=== PATIENT | male | born 1945 | race Caucasian/White ===

== ENCOUNTER 2020-10-16 06:53 | Day surgery (SDC) | payer MEDICARE, OTHER, MEDICAID, SELFPAY ==
[2020-10-10 13:58] VITALS: BMI 30.9
--- NOTE | 2020-10-13 11:12 | HO.ANESPROP2 ---
Documented by User: Pura Ortiz 10/13/20 11:12 HPI - Anesthesia Eval Consult details Narrative: 75yo M for Cataract Extraction IOL Insertion,right No prev cataract PCP cleared [facility], [facility] Past Medical History Medical History Asthma Elevated cholesterol [place] (hard of hearing) HTN (hypertension) Surgical History Surgical History H/O colonoscopy Social History Social History Alcohol intake: never Smoking Status: Former smoker Tobacco Type: Cigarette Smoking Quit Date: unknown-pt.not sure Use of substances other than those prescribed or required for medical reasons: No Advance Directives Information Provided: No Recently lost weight without trying: No Meds Allergies Allergy/AdvReac Type Severity Reaction Status Date / Time No Known Allergies Allergy Verified 10/16/20 07:39 [No Known Allergies*] Home Medications Medication Instructions Recorded Confirmed Type aspirin 81 mg PO DAILY 10/10/20 10/10/20 History fluticasone propionate [Flonase] 1 spray INTRANASAL DAILY 10/10/20 10/10/20 History hydrochlorothiazide 25 mg PO DAILY 10/10/20 10/10/20 History lisinopril 10 mg PO DAILY 10/10/20 10/10/20 History rosuvastatin 5 mg PO DAILY 10/10/20 10/10/20 History Exam Exam Date and Time: October 13, 2020 1112 Height,Weight and Vital Signs: Height 5 ft 5 in Weight 84.368 kg Assessment and Plan Assessment Anesthesia Assessment: Chart Reviewed Documented by User: Jamaica Murcia 10/16/20 07:55 [facility] Past Medical History Medical History Asthma Elevated cholesterol [place] (hard of hearing) HTN (hypertension) Surgical History Surgical History H/O colonoscopy Social History Social History Alcohol intake: never Smoking Status: Former smoker Tobacco Type: Cigarette Smoking Quit Date: unknown-pt.not sure Use of substances other than those prescribed or required for medical reasons: No Advance Directives Information Provided: No Recently lost weight without trying: No Meds Allergies Allergy/AdvReac Type Severity Reaction Status Date / Time No Known Allergies Allergy Verified 10/16/20 07:39 [No Known Allergies*] Home Medications Medication Instructions Recorded Confirmed Type aspirin 81 mg PO DAILY 10/10/20 10/10/20 History fluticasone propionate [Flonase] 1 spray INTRANASAL DAILY 10/10/20 10/10/20 History hydrochlorothiazide 25 mg PO DAILY 10/10/20 10/10/20 History lisinopril 10 mg PO DAILY 10/10/20 10/10/20 History rosuvastatin 5 mg PO DAILY 10/10/20 10/10/20 History Exam Airway Mallampati Class: II TM Dist: >3cm Neck ROM: Full Loose/Missing/Broken Teeth: No Heart: RRR Lungs: CTA Assessment and Plan Assessment Anesthesia Assessment: Anesthesia Plan Discussed and Chart Reviewed Final Anesthetic Review NPO: Yes ASA Class: II Final Preanesthetic Review: Meds/Allgs Chart Reviewed, Consent Obtained/Reviewed and Anes Risks/Benef Reviewed Patient Risk: Low Procedure Risk: Low Anesthetic Plan Anesthetic Plan: MAC: Disposition: Standard PACU
--- NOTE | 2020-10-13 12:36 | MHC.SHP ---
Pre-Procedural Eval Section A The patient is an INPATIENT: No The History & Physical has been completed within 30 days and I have reviewed it.: Yes Section B Chief Complaint: cataract right eye Allergies: Allergies Allergy/AdvReac Type Severity Reaction Status Date / Time No Known Allergies Allergy Verified 10/10/20 14:03 [No Known Allergies*] Plan Diagnosis/Plan: Unchanged I have reviewed the history and physical and performed a pertinent physical examination on my patient. No changes have occurred unless specified.
[2020-10-16 07:40] VITALS: BP 131/78; PULSE 66; RESP 16; TEMP 36.3; O2SAT 96
[2020-10-16] MEDS: Tetracaine HCl/PF 0.5% Oph Sol 4 ML DROPS 1 DROP EYE-RIGHT (08:00)
[2020-10-16] MEDS: Tropicamide 1 % Ophth Sol 3 ML BTL 1 DROP EYE-RIGHT ×3 (08:01→08:12)
[2020-10-16] MEDS: Phenylephrine HCL 2.5% Oph SoL 2 ML BOTTLE 1 DROP EYE-RIGHT ×3 (08:03→08:15)
[2020-10-16] MEDS: Lactated Ringers 500 ML 50 ML IV (08:05)
--- NOTE | 2020-10-16 09:02 | HO.PNOPHT ---
Ophthalmology Procedure Procedure Date of Service: 10/16/20 Ophthalmology Viscoelastic: Healaida Piedrat Dual Pack Pro Ophthalmology Lenses: TECMALOU [id number] (25) Procedure Notes: PREOPERATIVE DIAGNOSIS: Decreased visual acuity right eye secondary to cataract POSTOPERATIVE DIAGNOSIS: Same PROCEDURE: Right cataract extraction with intraocular lens insertion SURGEON: Ethan Gustafson M.D. ANESTHESIA: Topical/MAC ESTIMATED BLOOD LOSS: None COMPLICATIONS: None After obtaining informed consent, the patient was brought to the operating room suite and placed in the supine position. After adequate sedation per anesthesia, topical drops of Tetracaine were given to the right eye. The eye was then prepped and draped in the usual sterile fashion. The operating room microscope was then positioned over the operative eye and a lid speculum placed. A paracentesis was created. Viscoelastic was then instilled into the anterior chamber. A three plane incision was then created temporally, utilizing a 2.85 mm keratome. Capsulotomy forceps were then utilized to create a circular tear capsulotomy. Hydrodissection and hydrodelineation were carried out until adequate mobilization of the nucleus occurred. Phacoemulsification was then utilized to remove the dense central nucleus followed by removal of the cortical material utilizing the automated aspiration irrigation unit. Viscoelastic was instilled into the posterior capsular bag followed by placement of a posterior chamber intraocular lens without difficulty. The residual Viscoelastic was then removed utilizing the automated IA machine. The wound was checked and found to be watertight. The patient tolerated the procedure well and the lid speculum was removed. Intracameral injection of Vigamox 0.1 mL followed by a subtenon injection of Kenalog-40 0.2 mL were administered. The patient will be seen in the a.m.
[2020-10-16 09:03] VITALS: BP 142/83; PULSE 57; RESP 16; TEMP 36.1; O2SAT 95
== END 2020-10-16 09:32 | disposition home or self-care (01) ==
PROVIDERS: PCP Family Medicine; Visit Provider Ophthalmology
PROC: (CPT 66985; principal; 2020-10-16 09:00)
DX: H25.11 Age-related nuclear cataract, right eye (principal); H52.4 Presbyopia; I10 Essential (primary) hypertension; J30.9 Allergic rhinitis, unspecified; Z79.82 Long term (current) use of aspirin; Z79.899 Other long term (current) drug therapy; Z87.891 Personal history of nicotine dependence
CPT/HCPCS: 66984; J2250; J3010; J3300; V2632

== ENCOUNTER 2020-10-30 07:50 | Day surgery (SDC) | payer MEDICARE, MEDICAID, OTHER, SELFPAY ==
[2020-10-10 14:07] VITALS: BMI 30.9
--- NOTE | 2020-10-26 10:08 | MHC.SHP ---
Pre-Procedural Eval Section A The patient is an INPATIENT: No The History & Physical has been completed within 30 days and I have reviewed it.: Yes Section B Chief Complaint: cataract left eye Allergies: Allergies Allergy/AdvReac Type Severity Reaction Status Date / Time No Known Allergies Allergy Verified 10/16/20 07:39 [No Known Allergies*] Plan Diagnosis/Plan: Unchanged I have reviewed the history and physical and performed a pertinent physical examination on my patient. No changes have occurred unless specified.
--- NOTE | 2020-10-27 09:29 | P.CONAN_ITS ---
Documented by User: Pura Ortiz 10/27/20 09:31 HPI - Anesthesia Eval Consult details Narrative: 75yo M for Cataract Extraction IOL Insertion PCP cleared 1st eye 10/16/20 with MAC: Fent 50, Midaz 1 [facility] Past Medical History Medical History Asthma Elevated cholesterol [place] (hard of hearing) HTN (hypertension) Surgical History Surgical History H/O colonoscopy Social History Social History Alcohol intake: never Smoking Status: Former smoker Tobacco Type: Cigarette Smoking Quit Date: unknown-pt.not sure Use of substances other than those prescribed or required for medical reasons: No Advance Directives: No Advance Directives Information Provided: No Advance Directives on File: No Meds Allergies Allergy/AdvReac Type Severity Reaction Status Date / Time No Known Allergies Allergy Verified 10/16/20 07:39 [No Known Allergies*] Home Medications Medication Instructions Recorded Confirmed Type aspirin 81 mg PO DAILY 10/10/20 10/10/20 History fluticasone propionate [Flonase] 1 spray INTRANASAL DAILY 10/10/20 10/10/20 History hydrochlorothiazide 25 mg PO DAILY 10/10/20 10/10/20 History lisinopril 10 mg PO DAILY 10/10/20 10/10/20 History rosuvastatin 5 mg PO DAILY 10/10/20 10/10/20 History Exam Exam Date and Time: October 27, 2020 0929 Height,Weight and Vital Signs: Height 5 ft 5 in Weight 84.368 kg Assessment and Plan Assessment Anesthesia Assessment: Chart Reviewed Documented by User: Jamaica Murcia 10/30/20 08:40 [facility] Past Medical History Medical History Asthma Elevated cholesterol [place] (hard of hearing) HTN (hypertension) Surgical History Surgical History H/O colonoscopy Social History Social History Alcohol intake: never Smoking Status: Former smoker Tobacco Type: Cigarette Smoking Quit Date: unknown-pt.not sure Use of substances other than those prescribed or required for medical reasons: No Advance Directives: No Advance Directives Information Provided: No Advance Directives on File: No Meds Allergies Allergy/AdvReac Type Severity Reaction Status Date / Time No Known Allergies Allergy Verified 10/16/20 07:39 [No Known Allergies*] Home Medications Medication Instructions Recorded Confirmed Type aspirin 81 mg PO DAILY 10/10/20 10/10/20 History fluticasone propionate [Flonase] 1 spray INTRANASAL DAILY 10/10/20 10/10/20 History hydrochlorothiazide 25 mg PO DAILY 10/10/20 10/10/20 History lisinopril 10 mg PO DAILY 10/10/20 10/10/20 History rosuvastatin 5 mg PO DAILY 10/10/20 10/10/20 History Exam Airway Mallampati Class: III TM Dist: >3cm Neck ROM: Full Loose/Missing/Broken Teeth: Yes, Upper and Lower Heart: RRR Lungs: CTA Assessment and Plan Assessment Anesthesia Assessment: Anesthesia Plan Discussed and Chart Reviewed Final Anesthetic Review NPO: Yes ASA Class: II Final Preanesthetic Review: No Changes in Pt Med Stat, Meds/Allgs Chart Reviewed, Consent Obtained/Reviewed and Anes Risks/Benef Reviewed Patient Risk: Low Procedure Risk: Low Anesthetic Plan Anesthetic Plan: MAC:
[2020-10-30 08:52] VITALS: BP 147/81; PULSE 61; RESP 18; TEMP 36.3; O2SAT 96
[2020-10-30] MEDS: Tetracaine HCl/PF 0.5% Oph Sol 4 ML DROPS 1 DROP EYE-LEFT (09:04)
[2020-10-30] MEDS: Lactated Ringers 500 ML 50 ML IV (09:04)
[2020-10-30] MEDS: Phenylephrine HCL 2.5% Oph SoL 2 ML BOTTLE 1 DROP EYE-LEFT ×3 (09:08→09:16)
[2020-10-30] MEDS: Tropicamide 1 % Ophth Sol 3 ML BTL 1 DROP EYE-LEFT ×3 (09:10→09:16)
--- NOTE | 2020-10-30 09:38 | HO.PNOPHT ---
Ophthalmology Procedure Procedure Date of Service: 10/30/20 Ophthalmology Viscoelastic: Healon Duet Dual Pack Pro Ophthalmology Lenses: TECMALOU [id number] (25) Procedure Notes: PREOPERATIVE DIAGNOSIS: Decreased visual acuity left eye secondary to cataract POSTOPERATIVE DIAGNOSIS: Same PROCEDURE: Left cataract extraction with intraocular lens insertion SURGEON: Ethan Gustafson M.D. ANESTHESIA: Topical/MAC ESTIMATED BLOOD LOSS: None COMPLICATIONS: None After obtaining informed consent, the patient was brought to the operation room suite and placed in the supine position. After adequate sedation per anesthesia, topical drops of Tetracaine were given to the left eye. The eye was then prepped and draped in the usual sterile fashion. The operating room microscope was then positioned over the operative eye and a lid speculum placed. A paracentesis was created. Viscoelastic was then instilled into the anterior chamber. A three plane incision was then created temporally, utilizing a 2.85 mm keratome. Capsulotomy forceps were then utilized to create a circular tear capsulotomy. Hydrodissection and hydrodelineation were carried out until adequate mobilization of the nucleus occurred. Phacoemulsification was then utilized to remove the dense central nucleus followed by removal of the cortical material utilizing the automated aspiration irrigation unit. Viscoat elastic was instilled into the posterior capsular bag followed by placement of a posterior chamber intraocular lens without difficulty. The residual Viscoat elastic was then removed utilizing the automated IA machine. The wound was check and found to be watertight. The patient tolerated the procedure well and the lid speculum was removed. Intracameral injection of Vigamox 0.1 mL followed by a subtenon injection of Kenalog-40 0.2 mL were administered. The patient will be seen in the a.m.
[2020-10-30 09:58] VITALS: BP 156/80; PULSE 58; RESP 18; TEMP 36.4; O2SAT 94
--- NOTE | 2020-10-30 10:00 | HO.POSTANES ---
Post Anesthesia Evaluation Post Anesthesia Evaluation Vital Signs: Vital Signs Temp Pulse Resp BP Pulse Ox 10/30/20 08:52 97.3 F 61 18 147/81 H 96 Anesthesia: Monitored Mental Status: Awake Pain Control: Satisfactory Nausea/Vomiting: None Hydration: Adequate Anesthesia-Related Issues: No Anes. Related Issues
== END 2020-10-30 10:15 | disposition home or self-care (01) ==
PROVIDERS: PCP Family Medicine; Visit Provider Ophthalmology
PROC: (CPT 66985; principal; 2020-10-30 10:20)
DX: H25.12 Age-related nuclear cataract, left eye (principal); H54.7 Unspecified visual loss; H91.90 Unspecified hearing loss, unspecified ear; I10 Essential (primary) hypertension; J45.909 Unspecified asthma, uncomplicated; Z79.51 Long term (current) use of inhaled steroids; Z79.82 Long term (current) use of aspirin; Z79.899 Other long term (current) drug therapy; Z87.891 Personal history of nicotine dependence
CPT/HCPCS: 66984; J2250; J3010; J3300; V2632

== ENCOUNTER 2020-10-31 10:45 | Outpatient (REF) | payer SELFPAY | END 2020-10-31 10:46 | disposition home or self-care (01) | LOC: HO.HAP 10:45 | PROVIDERS: Visit Provider Family Medicine | DX: Z46.1 Encounter for fitting and adjustment of hearing aid (principal) | CPT/HCPCS: V5267 ==

== ENCOUNTER 2021-01-23 11:32 | Outpatient (REF) | payer SELFPAY | END 2021-01-23 11:33 | disposition home or self-care (01) | LOC: HO.HAP 11:32 | PROVIDERS: Visit Provider Family Medicine | DX: Z46.1 Encounter for fitting and adjustment of hearing aid (principal) | CPT/HCPCS: V5266 ==

== ENCOUNTER 2021-03-09 07:47 | Outpatient (REF) | payer MEDICARE, OTHER, SELFPAY | END 2021-03-09 07:48 | disposition home or self-care (01) | LOC: HO.HOSX 07:47 | PROVIDERS: Visit Provider Orthopaedic Surgery | DX: M25.362 Other instability, left knee (principal) | CPT/HCPCS: 99202 ==

== ENCOUNTER 2021-07-05 09:14 | Outpatient (REF) | payer SELFPAY | END 2021-07-05 09:15 | disposition home or self-care (01) | LOC: HO.HAP 09:14 | PROVIDERS: Visit Provider Family Medicine | DX: Z46.1 Encounter for fitting and adjustment of hearing aid (principal); H90.3 Sensorineural hearing loss, bilateral | CPT/HCPCS: V5266 ==

== ENCOUNTER 2022-02-13 14:53 | Outpatient (REF) | payer SELFPAY | END 2022-02-13 14:54 | disposition home or self-care (01) | LOC: HO.HAP 14:53 | PROVIDERS: PCP Family Medicine; Visit Provider Family Medicine | DX: Z46.1 Encounter for fitting and adjustment of hearing aid (principal); H90.3 Sensorineural hearing loss, bilateral | CPT/HCPCS: V5266 ==

== ENCOUNTER 2022-02-18 12:00 | Outpatient (REF) | payer MEDICARE, OTHER, SELFPAY ==
--- NOTE | 2022-02-18 16:18 | MHC.AU.AHA ---
Adult Audiological Evaluation Date of Visit: 02/18/22 Jewelry Maker Used: Afghan- In Person Reason for Appointment: Audiological re-evaluation due to concern for decreased hearing. Mr. Goodman has a known bilateral, sensorineural hearing loss and uses hearing aids binaurally. He notes that he hasn't been hearing as well with the hearing aids, especially from the left aid. The left earmold is loose and no longer fits well. Previous Hearing Test Results: [facility] 07/13/2019- Moderately severe to severe SNHL in the left ear. Moderately-severe to profound SNHL in the right ear. Negative middle-ear pressure in the right ear. Medical History: Medical History: High Blood Pressure Medical History: Per PCP report: Anxiety, Herpes, Hypecholesterolemia, Hypertension, Varicose Veins, Allergic rhinitis, Tremor, Dizziness, Catarqqact of both eyes Allergies: Lisinopril Medication List: Tylenol, Valacyclovir, loratadine, Crestor, Vitamin D3, aspirin, Guaifenesin AC, Debrox, amlodipine besylate, Hydrochlorothiazide Hearing Instrument History- Right Ear: Crushing Machine Operator: [employer] Model: Zynga B50-SP Serial Number: [id number] Battery Size: 13 Repair Warranty: 11/27/2022 Loss and Damage Warranty: 11/27/2022 Dispensed By: [facility] Date of Fittin09/10/2019 Hearing Instrument History- Left Ear: Crushing Machine Operator: [employer] Model: Zynga V50-SP Serial Number: [id number] Battery Size: 13 Warranty: 04/28/2019 Loss and Damage Warranty: USED Dispensed By: [facility] Date of Fittin02/15/2016 Otoscopy: Right Ear: Unremarkable Left Ear: Unremarkable Tympanometry: Tympanometry performed due to: History of middle ear dysfunction Right Ear: Negative Middle Ear Pressure (Type C) Left Ear: Normal Middle Ear System (Type A) Hearing Evaluation: Transducer(s) Used: Insert Earphones, Bone Conduction Method: Conventional Audiometry Stimuli Used: Pure Tones Right Ear: Description of Hearing: Severe sensorineural hearing loss from 250-1000 Hz, rising to moderately-severe sensorineural hearing loss at 2000 Hz, then sloping to a severe to profound sensorineural hearing loss from 9872-0717 Hz. Left Ear: Description of Hearing: Severe sensorineural hearing loss from 250-8000 Hz. Speech Recognition Threshold (SRT): Method Used: Recorded Lists Stimuli Used: Afghan Trisyllable Words Right Ear: 95 dBHL Left Ear: 95 dBHL Word Discrimination: Method: Recorded Lists Word Lists Used: Lista Bisil?bica (Afghan) Right Ear: 0/10 at 100 dBHL Left Ear: 0/10 at 100 dBHL Comparison: Compared to most recent evaluation: Hearing in the right ear is stable. Hearing has decreased by 20-25 dBHL from 250-500 Hz in the left ear. Recommendations: Audiological re-evaluation in one year. Hearing aid maintenance performed today. Earmold impressions taken of the left ear and a new earmold was ordered. Hearing aids are in good working condition. Diagnosis: Primary Diagnosis: H90.3 Bilateral Sensorineural Hearing Loss Services Performed: Comprehensive Audiological Evaluation (CPT 10406) Tympanometry (CPT 40155) Signature: Provider: Kaci Rowley, YUDITH-A
== END 2022-02-18 12:01 | disposition home or self-care (01) ==
LOC: HO.SH 12:00
PROVIDERS: Visit Provider Family Medicine
DX: Z01.118 Encounter for examination of ears and hearing with other abnormal findings (principal); H90.3 Sensorineural hearing loss, bilateral
CPT/HCPCS: 92557; 92567

== ENCOUNTER 2022-03-28 12:38 | Outpatient (REF) | payer SELFPAY | END 2022-03-28 12:39 | disposition home or self-care (01) | LOC: HO.HAP 12:38 | PROVIDERS: Visit Provider Family Medicine | DX: Z46.1 Encounter for fitting and adjustment of hearing aid (principal); H90.3 Sensorineural hearing loss, bilateral | CPT/HCPCS: V5264; V5266 ==

== ENCOUNTER → 2022-04-25 10:44 | Outpatient (BNVA) | payer MEDICARE, OTHER, SELFPAY | PROVIDERS: PCP Family Medicine; Referring Provider Family Medicine; Visit Provider Nurse Practitioner | DX: Z01.818 Encounter for other preprocedural examination (principal); D12.6 Benign neoplasm of colon, unspecified | CPT/HCPCS: 99202 ==

== ENCOUNTER 2023-05-19 10:22 | Outpatient (REF) | payer MEDICARE, OTHER, SELFPAY ==
[2023-05-19 12:02] LABS: MANUAL DIFF FLAG NO
[2023-05-19 12:17] LABS: Basophils Percent Auto 0.6 % (0-2); Eosinophils Absolute Auto 0.1 X10*3/uL (0.0-0.4); Eosinophils Percent Auto 1.7 % (0-4); Hematocrit 42.8 % (42.0-52.0); Hemoglobin 14.5 g/dl (14.0-18.0); Imm Gran Abs Auto 0.03 X10*3/uL (0.00-0.03); Imm Gran Pct Auto 0.4 % (0.0-0.4); Lymphocytes Absolute Auto 1.6 X10*3/uL (1.2-4.9); Lymphocytes Percent Auto 22.3 % (20-40); Mean Corpuscular HGB Conc 33.9 g/dl (31.0-36.0); Mean Corpuscular Hemoglobin 31.6 pg (27.0-33.0); Mean Corpuscular Volume 93.2 fL (80.0-98.0); Monocytes Absolute Auto 0.5 X10*3/uL (0.1-1.2); Monocytes Percent Auto 6.6 % (2-11); Neutrophils Absolute Auto 4.7 x10*3/uL (2.0-8.3); Neutrophils Percent Auto 68.4 % (45-73); Platelet Count 270 X10*3/uL (160-400); Red Blood Count 4.59 X10*6/uL (4.60-5.80); Red Cell Distribution Width 12.8 % (11.0-16.0); White Blood Count 6.9 X10*3/uL (4.8-10.8)
[2023-05-19 13:17] LABS: Alanine Aminotransferase 25 U/L (0-40); Albumin Level 4.1 g/dL (3.5-5.0); Alkaline Phosphatase 63 U/L (39-117); Anion Gap 13 (12-20); Aspartate Amino Transferase 31 U/L (5-37); Bilirubin Direct 0.3 mg/dL (0.0-0.5); Bilirubin Total 1.1 mg/dL (0.0-1.0); Blood Urea Nitrogen 13 mg/dL (9-16); Calcium 9.3 mg/dL (8.4-10.2); Carbon Dioxide 29 mmol/L (22-29); Chloride 104 mmol/L (96-108); Cholesterol 273 mg/dL; Estimated Glomerular Filt Rate > 60; Glucose Random 101 mg/dL (60-115); HDL Cholesterol 43 mg/dL; LDL Cholesterol Calculated 196 mg/dl; Potassium 2.9 mmol/L (3.3-5.1); Sodium 143 mmol/L (135-145); TSH reflex Free T4 2.26 uIU/mL (0.32-4.0); Total Protein 6.9 g/dL (6.5-8.0); Triglycerides 171 mg/dL
[2023-05-20 05:08] LABS: HIV AB/AG Nonreactive (Nonreactive); HIV Num 1 0.05 S/CO (0.00-0.99)
[2023-05-20 05:20] LABS: ~HepC Num1 0.05 S/CO (0.00-0.79); ~Hepatitis C Antibody Nonreactive (Nonreactive)
== END 2023-05-19 10:23 | disposition home or self-care (01) ==
LOC: HO.HHCL 10:22
PROVIDERS: Visit Provider Family Medicine
DX: Z11.4 Encounter for screening for human immunodeficiency virus [HIV] (principal); Z11.59 Encounter for screening for other viral diseases; I10 Essential (primary) hypertension; E78.00 Pure hypercholesterolemia, unspecified; E55.9 Vitamin D deficiency, unspecified; J39.2 Other diseases of pharynx
CPT/HCPCS: 36415; 80048; 80061; 80076; 82306; 84443; 85025; 86803; 87389

== ENCOUNTER 2023-12-11 13:36 | Outpatient (REF) | payer SELFPAY | END 2023-12-11 13:37 | disposition home or self-care (01) | LOC: HO.HAP 13:36 | PROVIDERS: Visit Provider Family Medicine | DX: Z46.1 Encounter for fitting and adjustment of hearing aid (principal); H90.3 Sensorineural hearing loss, bilateral | CPT/HCPCS: 92593; V5266 ==

== ENCOUNTER 2024-02-09 10:49 | Outpatient (REF) | payer SELFPAY ==
--- NOTE | 2024-02-10 12:52 | MHC.AU.HA3 ---
Hearing Instrument Follow-Up- Binaural Date of Visit: 02/09/24 Right Ear: Alek, Model, Color, Serial Number: Peyman Hollins [id number]-SP SN: [id number] Color: Silver [employer] Repair Warranty: 11/27/2022 [employer] Loss and Damage Warranty: 11/27/2022 [facility] Service Plan: Battery Size: 13 Auto Accessories Installer/Slim Tube: Earmold/Dome/CShell/SlimTip:Microsonic skeleton Type of Wax Guard: Dispensed By: [facility] Date of Fittin09/10/2019 Left Ear: Alek, Model, Color, Serial Number: Peyman Hollins [id number]-SP SN: [id number] Color: Silver [employer] Repair Warranty: 04/28/2019 [employer] Loss and Damage Warranty: USED [facility] Service Plan: Battery Size: 13 Auto Accessories Installer/Slim Tube: Earmold/Dome/CShell/SlimTip: Microsonic skeleton Type of Wax Guard: Dispensed By: [facility] Date of Fittin02/15/2016 Follow-Up Summary: Both aids dropped off for check, report of left battery not lasting. Cleaned checked aids, cleaned ear molds, replaced tubing. Listening check positive. Checked battery drain in test box, aids are equal in drain- 1.4 mA right, 1.3 mA L. Recommendations: Recommendations: Hearing instrument follow-up or maintenance as needed. Recommendations (Other): Left aid would have to go for repair if battery issue persists- over 5 years old would be $385. Diagnosis Code(s): Primary Diagnosis: H90.3 Bilateral Sensorineural Hearing Loss Signature: Provider: Biju Rodriguez, [facility]
== END 2024-02-09 10:50 | disposition home or self-care (01) ==
LOC: HO.HAP 10:49
PROVIDERS: Visit Provider Family Medicine
DX: Z13.89 Encounter for screening for other disorder (principal)

== ENCOUNTER 2024-02-10 14:24 | Outpatient (REF) | payer SELFPAY | END 2024-02-10 14:25 | disposition home or self-care (01) | LOC: HO.HAP 14:24 | PROVIDERS: Visit Provider Family Medicine | DX: Z46.1 Encounter for fitting and adjustment of hearing aid (principal); H90.3 Sensorineural hearing loss, bilateral | CPT/HCPCS: 92593 ==

== ENCOUNTER 2024-04-05 10:39 | Outpatient (REF) | payer MEDICARE, MEDICAID, SELFPAY ==
[2024-04-05 12:45] LABS: Alanine Aminotransferase 24 U/L (0-40); Albumin Level 4.2 g/dL (3.5-5.0); Alkaline Phosphatase 68 U/L (39-117); Anion Gap 14 (12-20); Aspartate Amino Transferase 25 U/L (5-37); Bilirubin Direct 0.2 mg/dL (0.0-0.5); Bilirubin Total 0.7 mg/dL (0.0-1.0); Blood Urea Nitrogen 13 mg/dL (9-16); Calcium 9.8 mg/dL (8.4-10.2); Carbon Dioxide 27 mmol/L (22-29); Chloride 105 mmol/L (96-108); Cholesterol 300 mg/dL (<200); Estimated Glomerular Filt Rate > 60; Glucose Random 123 mg/dL (60-115); HDL Cholesterol 44 mg/dL (>40); LDL Cholesterol Calculated 217 mg/dL (<100); Sodium 143 mmol/L (135-145); Total Protein 7.2 g/dL (6.5-8.0); Triglycerides 195 mg/dL (<150)
[2024-04-05 13:02] LABS: Creatinine Urine 112.13 mg/dL; Microalbum/Creatinine Ratio Ur 9.8 ug/mg cr (<30)
[2024-04-05 13:08] LABS: Potassium 2.9 mmol/L (3.3-5.1)
== END 2024-04-05 10:40 | disposition home or self-care (01) ==
LOC: HO.HHCL 10:39
PROVIDERS: Visit Provider Family Medicine
DX: I10 Essential (primary) hypertension (principal); E78.00 Pure hypercholesterolemia, unspecified
CPT/HCPCS: 36415; 80048; 80061; 80076; 82043; 82570

== ENCOUNTER 2024-07-06 14:50 | Outpatient (REF) | payer MEDICARE, MEDICAID, SELFPAY | END 2024-07-06 14:51 | disposition home or self-care (01) | LOC: HO.HAP 14:50 | PROVIDERS: Visit Provider Family Medicine | DX: Z13.89 Encounter for screening for other disorder (principal) ==

== ENCOUNTER 2024-07-07 11:30 | Outpatient (REF) | payer SELFPAY | END 2024-07-07 11:31 | disposition home or self-care (01) | LOC: HO.HAP 11:30 | PROVIDERS: Visit Provider Family Medicine | DX: Z46.1 Encounter for fitting and adjustment of hearing aid (principal) | CPT/HCPCS: 92593 ==

== ENCOUNTER 2024-07-28 10:53 | Outpatient (REF) | payer MEDICARE, OTHER, SELFPAY ==
[2024-07-28 13:44] LABS: Anion Gap 12 (12-20); Blood Urea Nitrogen 15 mg/dL (9-16); Calcium 9.7 mg/dL (8.4-10.2); Carbon Dioxide 29 mmol/L (22-29); Chloride 105 mmol/L (96-108); Estimated Glomerular Filt Rate > 60; Glucose Random 94 mg/dL (60-115); Magnesium 2.4 mg/dL (1.6-2.6); Potassium 3.1 mmol/L (3.3-5.1); Sodium 143 mmol/L (135-145)
== END 2024-07-28 10:54 | disposition home or self-care (01) ==
LOC: HO.HHCL 10:53
PROVIDERS: Visit Provider Family Medicine
DX: E87.6 Hypokalemia (principal)
CPT/HCPCS: 36415; 80048; 83735

== ENCOUNTER 2024-08-05 12:59 | Outpatient (REF) | payer SELFPAY | END 2024-08-05 13:00 | disposition home or self-care (01) | LOC: HO.HAP 12:59 | PROVIDERS: Visit Provider Family Medicine | DX: Z13.89 Encounter for screening for other disorder (principal) ==

== ENCOUNTER 2024-08-12 14:34 | Outpatient (REF) | payer SELFPAY | END 2024-08-12 14:35 | disposition home or self-care (01) | LOC: HO.HAP 14:34 | PROVIDERS: Visit Provider Family Medicine | DX: Z46.1 Encounter for fitting and adjustment of hearing aid (principal); H90.3 Sensorineural hearing loss, bilateral | CPT/HCPCS: 92592 ==

== ENCOUNTER 2025-01-03 11:28 | Outpatient (REF) | payer MEDICARE, MEDICAID, OTHER, SELFPAY ==
[2025-01-03 12:57] LABS: Alanine Aminotransferase 32 U/L (0-40); Albumin Level 4.1 g/dL (3.5-5.0); Alkaline Phosphatase 88 U/L (39-117); Anion Gap 11 (12-20); Aspartate Amino Transferase 30 U/L (5-37); Bilirubin Direct 0.3 mg/dL (0.0-0.5); Bilirubin Total 1.1 mg/dL (0.0-1.0); Blood Urea Nitrogen 13 mg/dL (9-16); Carbon Dioxide 29 mmol/L (22-29); Chloride 105 mmol/L (96-108); Cholesterol 185 mg/dL (<200); Estimated Glomerular Filt Rate > 60; Glucose Random 107 mg/dL (60-115); HDL Cholesterol 43 mg/dL (>40); LDL Cholesterol Calculated 115 mg/dL (<100); Potassium 3.9 mmol/L (3.3-5.1); Sodium 141 mmol/L (135-145); Total Protein 7.1 g/dL (6.5-8.0); Triglycerides 136 mg/dL (<150)
--- OUTSIDE RECORDS SUMMARY | 2025-01-03 13:08 | XMS_ITS | Encounter Summary ---
Author Organization [employer] [facility] Address [address] [place] [address] Care Team Providers Care Switchboard Troubleshooter Name Role Phone Michelle Carcamo MD Primary Care Provider [phone] Encounter Details Date Type Department Care Team (Latest Contact Info) Description 03/15/2021 Abstract [facility] CONVERSIONS Dental, Provider, DDS Social History Tobacco Use Types Packs/Day Years Used Date Smoking Tobacco: Never Assessed Sex and Gender Information Value Date Recorded Sex Assigned at Male 08/05/2022 10:20 AM EDT Legal Sex Male 10:20 AM EDT Gender Identity Male 08/05/2022 10:20 AM EDT Sexual Orientation Straight 08/05/2022 10 :20 AM EDT documented as of this encounter Plan of Treatment Upcoming Encounters Date Type Department Care Team ( st Contact Info) Description 02/17/2025 10:30 AM EDT Office Visit [facility] MEDICINE [address] [place] [address] Michelle Carcamo MD [address] [place] [address] documented as of this encounter Visit Diagnoses Not on filedocumented in this encounter Care Teams Switchboard Troubleshooter Relationship Specialty Start Date End Date Michelle Carcamo MD [address], [place] [phone] PCP - General Family Medicine 10/06/18 documented as of this encounter
--- OUTSIDE RECORDS SUMMARY | 2025-01-03 13:08 | XMS_ITS | Encounter Summary ---
Author Organization [employer] Address [address] [place] [address] Care Team Providers Care Gas Specialist Name Role Phone Michelle Carcamo MD Primary Care Provider [phone]- [phone] Encounter Details Date Type Department Care Team (Late st Contact Info) Description 07/28/2024 Orders Only [facility] MEDICINE [address] [place] [address] Michelle Carcamo MD [address] [place], [place] [phone] Hypokalemia Social History Tobacco Use Types Packs/Day Years Used Date Smoking Tobacco: Never Passive Smoke Exposure: Never Smokeless Tobacco: Never Alcohol Use Standard Drinks/Week Comments Never 0 (1 standard drink = 0.6 oz pur e alcohol) Alcohol Answer Date Recorded Frequency of Alcohol Consumption Not on file 07/28/2024 Average Number of Drinks Not on file 024 Frequency of Binge Drinking Not on file 07/07 Score 0 07/28/2024 Depression Answer Date Recorded Patient Health Questionnaire-9 Score 0 07/28/2024 Patient Health Questionnaire-9 Score 0 07/28/2024 Last PHQ-9: Questionnaire Data Not on file 1 Housing Stability Answer Date Recorded What is your housing situation today? I have rufus salomon 07/28/[address] you li ve. Do you have problems with any of the following? No or not working smoke detectors 07/28/2024 Food Insecurity Answer Date Recorded Within the past 12 months, y ou worried that your food would run out before you got money to buy more: Never True 07/28/2024 Within the past 12 months,th e food you bought just didn't last and you didn't have enough money to get more: Never True Transportation Answer Date Recorded In the past 12 months, has l ack of transportation kept you from medical appts, meetings, work or from getting things needed for daily living? No 07/28/2024 Utilities Answer Date Recorded In the past 12 months, has t he electric, gas, oil or water company threatened to shut off services in your home? I am not sure 07/28/2024 Depression Answer Date Recorded Patient Health Questionnaire-2 Score 0 07/28/2024 Internet Access Answer Date Recorded Internet Access Q1 Yes 07/28/2024 Internet Access Q2 Not on file 07/28/2024 Sex and Gender Information Value Date Recorded Sex Assigned at Male 08/05/2022 10:20 AM EDT Legal Sex Male 10:20 AM EDT Gender Identity Male 08/05/2022 10:20 AM EDT Sexual Orientation Straight 08/05/2022 10 :20 AM EDT documented as of this encounter Plan of Treatment Upcoming Encounters Date Type Department Care Team (Late st Contact Info) Description 02/17/2025 10:30 AM EDT Office Visit [facility] MEDICINE [address] [place] [address] Michelle Carcamo MD [address] [place] [address] documented as of this encounter Visit Diagnoses Diagnosis Hypokalemia Hypopotassemia documented in this encounter Additional Health Concerns Assessment Noted Time PHQ-9 Depression Total Score: 0 07/28/20 24 10:17 AM EDT documented as of this encounter Care Teams Gas Specialist Relationship Specialty Start Date End Date Michelle Carcamo MD [address] [place] [address] PCP - General Family Medicine 10/06/18 documented as of this encounter
--- OUTSIDE RECORDS SUMMARY | 2025-01-03 13:08 | XMS_ITS | Clinical Summary ---
Author Organization [employer] Address [address] [facility] 7t [place] [address] Care Team Providers Care Hose Stripper Name Role Phone Michelle Carcamo MD Primary Care Provider [phone]- [phone] Allergies Active Allergy Reactions Criticality Noted Date Comments Lisinopril 03/23/2019 Other reaction(s): Hives / Skin Rash Medications amLODIPine (Norvasc) 5 MG tabletIndications :Primary hypertension TAKE 1 TABLET BY MOUTH EVERY MORNING 90 tablet 3 4 Active valACYclovir (Valtrex) 500 MG tabletIndications :Herpes simplex TAKE 1 TABLET BY MOUTH TWICE A DAY FOR 3 DAYS 18 tablet 3 4 Active hydroCHLOROthiazi de (HYDRODiuril) 25 MG tabletIndications :Primary hypertension TAKE 1 TABLET BY MOUTH EVERY MORNING-spanis h, dose increased 08/30/24 90 tablet 3 4 Active potassium chloride CR (Klor-Con) 10 MEQ ER tabletIndications :Hypokalemia Take 1 tab po daily 90 tablet 3 4 Active atorvastatin (Lipitor) 20 MG tabletIndications :Hypercholesterol emia Take 1 tablet (20 mg) by mouth Once per day. 30 tablet 11 5 11/15/19 26 Active Active Problems Problem Noted Date Diagnosed Date Hypokalemia 07/28/2024 Overview (08/30/2024): Lab Results Component Value Date K 3.1 (L) 07/28/2024 K 2.9 (LL) 04/05/2024 K 2.9 (L) 05/19/2023 -will recheck on BMP and will also check magnesium in Mid-October - continue potassium 10 meq Assessment & Plan (08/30/2024 9:55 AM EST): Lab Results Component Value Date K 3.1 (L) 07/28/2024 K 2.9 (LL) 04/05/2024 K 2.9 (L) 05/19/2023 -will recheck on BMP and will also check magnesium in Mid-October - continue potassium 10 meq Assessment & Plan (07/28/2024 10:02 AM EDT): Lab Results Component Value Date K 2.9 (LL) 04/05/2024 K 2.9 (L) 05/19/2023 -will recheck on BMP and will also check magnesium 07/28/24 Mild cognitive impairment 07/28/2024 Hx of falling 07/28/2024 Bilateral cataracts 05/19/2023 Tubular adenoma 05/19/2023 Overview (08/20/2023): Tubular adenoma on colonoscopy with Dr. Abraham 05/2017. GI saw pt and per pt no further recommended based on age. Other specified health status 05/19/2023 Overview (08/30/2024): -next physical exam due after 08/30/2025 -eye care facilitated by [facility] -dental home is [facility] dental -health care proxy given and filed 07/28/24 Assessment & Plan (08/30/2024 9:57 AM EST): -next physical exam due after 08/30/2025 -eye care facilitated by [facility] -dental home is [facility] dental -health care proxy given and filed 07/28/24 Assessment & Plan (07/28/2024 9:53 AM EDT): -next physical exam due after 08/20/2024 -eye care facilitated by [facility] -dental home is [facility] dental -health care proxy given and filed 07/28/24 Assessment & Plan (08/20/2023 12:11 PM EST): -next physical exam due after 08/20/2024 -eye care facilitated by [facility] -dental home is [facility] dental Assessment & Plan (05/19/2023 9:44 AM EDT): -next physical exam due will see Pt back in 2 months. -eye care facilitated by -dental home is Vitamin D deficiency 05/19/2023 Hx of syphilis 05/19/2023 Overview (05/19/2023): Syphilis reactive with confirmatory 11/2018, RPR was non reactive. Assessment & Plan (05/19/2023 9:46 AM EDT): Syphilis reactive with confirmatory 11/2018, RPR was non reactive. 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 Pt is unaware of movemnt. No other evidence of dyskinesia. Not on any meds that should cause this. Continue to mornitor to monitor for evidence of parkinsons. Assessment & Plan (08/20/2023 12:11 PM EST): Quesion of pill rolling tremor on exam. Pt is unaware of movemnt. No other evidence of dyskinesia. Not on any meds that should cause this. Continue to mornitor to monitor for evidence of parkinsons. 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 Pt saw [facility] audiology 11/25/2019 Assessment & Plan (04/05/2024 8:37 AM EDT): Uses hearing aids Assessment & Plan (08/20/2023 12:11 PM EST): Uses hearing aids Assessment & Plan (05/19/2023 11:06 AM EDT): Uses hearing aids Anxiety 06/04/2012 Varicose veins of left lower extremity 2 Hypertension 04/02/2012 Overview (11/15/2024): -Blood pressure is not controlled. Pt does not want to change medications. It has taken a decade to get a regimin that he agrees to take daily. -Continue lifestyle modifications -Continue current medications -Continue hydrochlorothiazide increased to 25 mg daily 08/30/25 -Continue amlodipine 5 mg daily 08/30/24 -Continue potassium 10 meq 08/30/24 Assessment & Plan (11/15/2024 12:21 PM EST): -Blood pressure is not controlled. Pt does not want to change medications. It has taken a decade to get a regimin that he agrees to take daily. -Continue lifestyle modifications -Continue current medications -Continue hydrochlorothiazide increased to 25 mg daily 08/30/25 -Continue amlodipine 5 mg daily 08/30/24 -Continue potassium 10 meq 08/30/24 Assessment & Plan (08/30/2024 10:03 AM EST): -Blood pressure slightly above goal -Continue lifestyle modifications -Continue current medications - hydrochlorothiazide increased to 25 mg daily in the morning 08/30/25 - amlodipine 5 mg daily 08/30/24 Advised to take with foods to avoid nausea. - Continue potassium 10 meq 08/30/24 Assessment & Plan (07/28/2024 10:08 AM EDT): -Blood pressure slightly above goal -Continue lifestyle modifications -Continue current medications Assessment & Plan (04/05/2024 10:13 AM EDT): -Blood pressure is slightly above goal -Continue lifestyle modifications -Continue current medications Assessment & Plan (08/20/2023 12:10 PM EST): -Blood pressure is at goal -Continue lifestyle modifications -Continue current medications Assessment & Plan (05/19/2023 9:10 AM EDT): -Blood pressure is at goal -Continue lifestyle modifications -Continue current medications Hypercholesterolemia 04/02/2012 Overview (11/15/2024): Lab Results Component Value Date CHOL 296 (H) 10/18/2024 TRIG 288 (H) 10/18/2024 HDL 42 10/18/2024 LDLCHOLCAL 197 (H) 10/18/2024 -continue lifestyle modifications -pt self discontinued multiple meds, will try again atorvastatin 20mg at bedtime 11/15/24 - Ordered labs December 2024 Assessment & Plan (11/15/2024 12:20 PM EST): Lab Results Component Value Date CHOL 296 (H) 10/18/2024 TRIG 288 (H) 10/18/2024 HDL 42 10/18/2024 LDLCHOLCAL 197 (H) 10/18/2024 -continue lifestyle modifications -pt self discontinued multiple meds, will try again atorvastatin 20mg at bedtime 11/15/24 - Ordered labs December 2024 Assessment & Plan (08/30/2024 9:56 AM EST): Lab Results Component Value Date CHOL 300 (H) 04/05/2024 TRIG 195 (H) 04/05/2024 HDL 44 04/05/2024 LDLCHOLCAL 217 (H) 04/05/2024 -continue lifestyle modifications -Restart rosuvastatin 5mg at bedtime. He will not change medication and has a long history of nonadherent to all statins. - Ordered labs 08/30/24 To recheck in 6 weeks Assessment & Plan (07/28/2024 10:03 AM EDT): Lab Results Component Value Date CHOL 300 (H) 04/05/2024 TRIG 195 (H) 04/05/2024 HDL 44 04/05/2024 LDLCHOLCAL 217 (H) 04/05/2024 -continue lifestyle modifications -continue rosuvastatin 5mg at bedtime. He will not change medication and has a long history of nonadherent to all statins. Assessment & Plan (04/05/2024 8:38 AM EDT): Lab Results Component Value Date CHOLESTEROL 260 (H) 04/30/2021 LDLCHOL 184 (H) 04/30/2021 LDLCHOL 180 (H) 06/13/2020 TRIG 171 05/19/2023 HDLCHOL 42 04/30/2021 CHOLHDLRAT 6.2 (H) 04/30/2021 -continue lifestyle modifications -continue rosuvastatin 5mg at bedtime. He will not change medication and has a long history of nonadherent to all statins. Assessment & Plan (08/20/2023 12:11 PM EST): Lab Results Component Value Date CHOLESTEROL 260 (H) 04/30/2021 LDLCHOL 184 (H) 04/30/2021 LDLCHOL 180 (H) 06/13/2020 TRIG 171 05/19/2023 HDLCHOL 42 04/30/2021 CHOLHDLRAT 6.2 (H) 04/30/2021 -continue lifestyle modifications -continue rosuvastatin 5mg at bedtime. He will not change medication and has a long history of nonadherent to all statins. Assessment & Plan (05/19/2023 11:06 AM EDT): Lab Results Component Value Date CHOLESTEROL 260 (H) 04/30/2021 LDLCHOL 184 (H) 04/30/2021 LDLCHOL 180 (H) 06/13/2020 HDLCHOL 42 04/30/2021 CHOLHDLRAT 6.2 (H) 04/30/2021 -continue lifestyle modifications -continue rosuvastatin 5mg at bedtime. He will not change medication and has a long history of nonadherent to all statins. Resolved Problems Problem Noted Date Diagnosed Date Resolved Date Allergic rhinitis 04/02/2012 10/19/2024 Encounters Date Type Department Care Team Description 12/17/2024 Population Health Risk Score [facility] (C[facility]) Department [address] [address] Provider, Population Health Generic 11/18/2024 Telephone [facility] MEDICINE [address] [place] [phone] Ana Perkins MA Record Request (Serge is requesting notes from ENT.) 11/15/2024 10:30 AM EST Office Visit [address] [address] Michelle Carcamo MD Hypercholesterolemia (Primary Dx); Dietary counseling; Exercise counseling; Class 1 obesity due to excess calories with serious comorbidity and body mass index (BMI) of 30.0 to 30.9 in adult; Primary hypertension 11/15/[address] [address] Michelle Carcamo MD 11/15/2024 Travel 11/12/[address] [address] Ana Perkins MA chartprep 10/08/2024 Telephone [facility] PEDS [address] [place] [address] Leonela Garcia MA November Recall from Last 3 Months Immunizations Name Administration Dates Next Due Influenza High-dose Quadriva lent Preservative Free 08/20/2023,07/19/2022,07/19/2021,07/08 Influenza injectable quadriv alent IIV4 with preservative 10/02/2017 Influenza, High Dose Seasona l, Preservative Free 07/08/2024,06/29/2019,06/05/2018,07/01,06/12/2016 Influenza, IIV3, injectable 06/20/2014,0 06/23/2011,08/24/2010,07/20,07/10/2007 Influenza, Split (incl. benitez fied surface antigen) 06/25/2013,06/23/2012 Pneumococcal Conjugate PCV 13 10/28/2018 Pneumococcal Polysaccharide PPSV23 10/02/2017,,07/15/2003 RSV Bivalent 04/29/2024 TD (adult), 2 Lf tetanus tox oid, preservative free, adsorbed 05/19/2023,12/05/2003 Tdap 04/27/2012 Zoster, Recombinant 04/29/2024,07/01/2020 Zoster, live 10/21/2012 Social History Tobacco Use Types Packs/Day Years Used Date Smoking Tobacco: Never Passive Smoke Exposure: Never Smokeless Tobacco: Never Tobacco Cessation:Counseling Given: Not Answered Alcohol Use Standard Drinks/Week Comments Never 0 [...] is your housing situation today? I have rufusmitzi salomon 07/28/[address] you [...] Orientation Straight 08/05/2022 10 :20 AM EDT Last Filed Vital Signs Vital Sign Reading Time Taken Comments Blood Pressure 160/80 11/15/2024 10:37 AM EST Pulse 68 11/15/2024 10:37 AM EST Temperature 35.9 ??C (96.7 ??F) 11/15/2024 1 0:37 AM EST Respiratory Rate 20 11/15/2024 10:3 7 AM EST Oxygen Saturation 98% 11/15/2024 10: 37 AM EST Inhaled Oxygen Concentration - - Weight 91.1 kg (200 lb 12.8 oz) 025 10:37 AM EST Height 168.7 cm (5' 6.4 ) 08/30/2024 9:14 AM EST Body Mass Index 32.02 08/30/2024 9:14 AM EST Plan of Treatment Upcoming Encounters Date Type Department Care Team ([facility] st Contact Info) Description 02/17/2025 10:30 AM EDT Office Visit [facility] [address] [place], [place] [phone] Michelle Carcamo MD [address] [place], [place] [phone] Health Maintenance Due Date Last Done Comments Alcohol/Substance Use Screening 07/28/2025 07/28/2024 COVID-19 Vaccine ( season) 2025 12/05/2021, 12/14/2020, 11/16/2020 Postponed from 06/06/2024 (Patient Refused) Depression Screening 07/28/2025 07/28/2024, 07/28/20 24 SDOH Screening 07/28/2025 07/28/2024 Tobacco Screening 11/15/2025 11/15/2024 Lipid Panel 10/18/2029 01/03/2025, 10/06, 04/05/2024, Additional history exists DTaP/Tdap/Td Vaccines (3 - Td or Tdap) 05/19/2033 05/19/2023, 04/27/2012, 12/05/2003 Pneumococcal Vaccine: 50+ Years Completed 10/28/2018, 10/02/2017, 04/27/2012, Additional history exists RSV Patients and Patients Aged 60 years or older Completed 04/29/2024 Zoster Vaccines Completed 04/29/2024, 06/07, 10/21/2012 Influenza Vaccine Completed 07/08/2024, , 07/19/2022, Additional history exists HIB Vaccines Aged Out No longer eligi ble based on patient's age to complete this topic HPV Vaccines Aged Out No longer eligi ble based on patient's age to complete this topic Hepatitis A Vaccines Aged Out No long er eligible based on patient's age to complete this topic Hepatitis B Vaccines Aged Out No long er eligible based on patient's age to complete this topic IPV Vaccines Aged Out No longer eligi ble based on patient's age to complete this topic Meningococcal Vaccine Aged Out No edilberto corazon eligible based on patient's age to complete this topic RSV under 20 months Aged Out No longe r eligible based on patient's age to complete this topic Rotavirus Vaccines Aged Out No longer eligible based on patient's age to complete this topic Procedures Procedure Name Priority Date/Time Associated Diagnosis Comments LIPID PANEL, STANDARD Routine 01/03/2025 11:30 AM EDT Hypercholesterolemi a HEPATIC FUNCTION PANEL Routine 01/03/2025 11:30 AM EDT Hypercholesterolemi a BASIC METABOLIC PANEL Routine 01/03/2025 11:30 AM EDT Hypokalemia HEPATIC FUNCTION PANEL Routine 10/18/2024 1:56 PM EST Hypercholesterolemi a LIPID PANEL, STANDARD Routine 10/18/2024 1:56 PM EST Hypercholesterolemi a BASIC METABOLIC PANEL Routine 10/18/2024 1:56 PM EST Hypokalemia from Last 3 Months Results * (ABNORMAL) Hepatic Function Panel (01/03/2025 11:30 AM EDT) Only the most recent of2 resultswithin the time period is included. Bilirubin, Total 1.1(H) 0.0 - 1.0 mg/dL [facility] Bilirubin, Direct 0.3 0.0 - 0.5 mg/dL [facility] Aspartate Amino Transferase 30 5 - 37 U/L [facility] Alanine Aminotransferase 32 0 - 40 U/L [facility] Total Protein 7.1 6.5 - 8.0 g/dL [facility] Albumin Level 4.1 3.5 - 5.0 g/dL [facility] Alkaline Phosphatase 88 39 - 117 U/L [facility] Blood Venous blood specimen / Unknown 01/03/2025 11:30 AM EDT 01/03/2025 12:30 PM EDT us Michelle Carcamo MD LAB BLOOD ORDERABLES Final Result [facility] [address] [place] [phone] [phone] * (ABNORMAL) Lipid Panel, Standard (01/03/2025 11:30 AM EDT) Only the most recent of2 resultswithin the time period is included. Triglycerides 136 <150 mg/dL [facility] Comment:Desirable Triglyceri de: less than 150 mg/dLBorderline High Triglyceride 150-199 mg/dLHigh Triglyceride: 200-499 mg/dLVery High Triglyceride: greater than or equal to 5OO mg/dL Cholesterol 185 <200 mg/dL [facility] Comment:Desirable Cholestero l: less than 200 mg/dLBorderline High Cholesterol: 200-239 mg/dLHigh Cholesterol: greater than 239 mg/dL LDL Cholesterol Calculated 115(H) <100 mg/dL [facility] Comment:Desirable LDL: less than 100 mg/dLNear Optimal/Above Optimal LDL: 110- 129 mg/dLBorderline High LDL: 130-159 mg/dLHigh LDL: 160-189 mg/dLVery High LDL: greater than or equal to 190 mg/dL HDL Cholesterol 43 >40 mg/dL [facility] Comment:Desirable HDL: great er than 40 mg/dL Note: This HDL assay may give artificially low results in patients with liver disease. Blood Venous blood specimen / Unknown 01/03/2025 11:30 AM EDT 01/03/2025 12:30 PM EDT Michelle Carcamo MD LAB BLOOD ORDERABLES Final Result Performing Organization Address [facility]/ZIP Co de Phone Number [facility] [address] [place] [address] [phone] * (ABNORMAL) Basic Metabolic Panel (01/03/2025 11:30 AM EDT) Only the most recent of2 resultswithin the time period is included. Sodium 141 135 - 145 mmol/L [facility] Potassium 3.9 3.3 - 5.1 mmol/L [facility] Chloride 105 96 - 108 mmol/L [facility] Carbon Dioxide 29 22 - 29 mmol/L [facility] Anion Gap 11(L) 12 - 20 [facility] Urea Nitrogen (BUN) 13 9 - 16 mg/dL [facility] Creatinine, Serum 0.82 0.5 - 1.4 mg/dL [facility] Estimated Glomerular Filt Rate >60 [facility] Comment:Chronic Kidney Disea se: Estimated GFR < 60 mL/min/[id number] Kidney Disease: Estimated GFR < 15 mL/min/1.73m2 Glucose 107 60 - 115 mg/dL [facility] Calcium 9.0 8.4 - 10.2 mg/dL [facility] Blood Venous blood specimen / Unknown 01/03/2025 11:30 AM EDT 01/03/2025 12:30 PM EDT Michelle Carcamo MD LAB BLOOD ORDERABLES Final Result Performing Organization Address City/[facility]/ZIP Co de Phone Number [facility] [address] [place] [phone] from Last 3 Months Insurance MEDICARE [facility] STANDARD HS FULL Advance Directives Documents on File Type Date Recorded Patient Child Custody Evaluator Expl anation Advance Directives and Living Will 07/29/2024 12:34 PM Health Care Proxy Advance Directives and Living Will 04/05/2024 Health Care Proxy 04/05/24 Care Teams Hose Stripper Relationship Specialty Start Date End Date Paulding, MD Michelle [address] [place] [phone] PCP - General Family Medicine 10/06/18
--- OUTSIDE RECORDS SUMMARY | 2025-01-03 13:08 | XMS_ITS | Encounter Summary ---
Author Organization [employer] Address [address] [facility] [address]t [place] [address] Care Team Providers Care Egg Tester Name Role Phone Michelle Carcamo MD Primary Care Provider [phone]- [phone] Reason for Visit * Reason Comments Med Change Request Encounter Details Date Type Department Care Team ([facility] Contact Info) Description 08/19/2024 Refill [facility] [address] [place] [address] Michelle Carcamo MD [address] [place] [address] Hypokalemia Social History Tobacco Use Types Packs/Day [...] Description 02/17/2025 10:30 AM EDT Office Visit [facility] [address] [place] [phone] Michelle Carcamo MD [address] [place] [phone] documented as of this encounter Visit Diagnoses Diagnosis Hypokalemia Hypopotassemia documented in this encounter Additional Health Concerns Assessment Noted Time PHQ-9 Depression Total Score: 0 07/28/20 24 10:17 AM EDT documented as of this encounter Care Teams Egg Tester Relationship Specialty Start Date End Date Michelle Carcamo MD [address] [place] [phone] PCP - General Family Medicine 10/06/18 documented as of this encounter
--- OUTSIDE RECORDS SUMMARY | 2025-01-03 13:08 | XMS_ITS | Encounter Summary ---
Author Organization [employer] Address [address] [facility] 7t [place] [address] Care Team Providers Care Business Taxes Specialist Name Role Phone Carlos AlbertoMichelle chadwick MD Primary Care Provider [phone]- [phone] Reason for Visit * Reason Comments Med Refill Encounter Details Date Type Department Care Team ([facility] st Contact Info) Description 06/14/2024 Refill [facility] PEDS [address] [place], [place] [phone] Venita Sparrow, ANP [address] [place] [address] Primary hypertension Social History Tobacco Use Types Packs/Day Years Used Date Smoking Tobacco: Never Passive Smoke Exposure: Never Smokeless Tobacco: Never Alcohol Use Standard Drinks/Week Comments Never 0 (1 standard drink = 0.6 oz pur e alcohol) Depression Answer Date Recorded Patient Health Questionnaire-9 Score 0 05/19/2023 Housing Stability Answer Date Recorded What is your housing situation today? I have rufus salomon 07/23/[address] you li ve. Do you have problems with any of the following? None of the above 07/23/2023 Food Insecurity Answer Date Recorded Within the past 12 months, y ou worried that your food would run out before you got money to buy more: Never True 07/23/2023 Within the past 12 months,th e food you bought just didn't last and you didn't have enough money to get more: Never True Transportation Answer Date Recorded In the past 12 months, has l ack of transportation kept you from medical appts, meetings, work or from getting things needed for daily living? No 07/23/2023 Utilities Answer Date Recorded In the past 12 months, has t he electric, gas, oil or water company threatened to shut off services in your home? No 07/23/2023 Depression Answer Date Recorded Patient Health Questionnaire-2 Score 0 05/19/2023 Sex and Gender Information Value Date Recorded Sex Assigned at Male 08/05/2022 10:20 AM EDT Legal Sex Male 10:20 AM EDT Gender Identity Male 08/05/2022 10:20 AM EDT Sexual Orientation Straight 08/05/2022 10 :20 AM EDT documented as of this encounter Plan of Treatment Upcoming Encounters Date Type Department Care Team (Late st Contact Info) Description 02/17/2025 10:30 AM EDT Office Visit [facility] MED[facility] [address] [place] [address] Michelle Carcamo MD [address] [place] [address] documented as of this encounter Visit Diagnoses Diagnosis Primary hypertension Unspecified essential hypertension documented in this encounter Additional Health Concerns Assessment Noted Time PHQ-9 Depression Total Score: 0 05/19/20 23 9:26 AM EDT documented as of this encounter Care Teams Business Taxes Specialist Relationship Specialty Start Date End Date Michelle Carcamo MD [address] [place] [address] PCP - General Family Medicine 10/06/18 documented as of this encounter
--- OUTSIDE RECORDS SUMMARY | 2025-01-03 13:08 | XMS_ITS | Encounter Summary ---
Author Organization [employer] Address [address] [facility] [address] [place] [address] Care Team Providers Care Shipping Receiving Clerk Name Role Phone Michelle Carcamo MD Primary Care Provider [phone]- [phone] Reason for Visit * Reason Comments Med Refill Encounter Details Date Type Department Care Team ([facility] st Contact Info) Description 04/26/2024 Refill [facility] [address] [place] [address] Regla Cabrera MD [address] [place] [address] Social History Tobacco Use Types Packs/Day Years [...] t he electric, gas, oil or water [employer] threatened to shut off services in your [...] Description 02/17/2025 10:30 AM EDT Office Visit [facility] MEDICINE [address] [place] [phone] Michelle Carcamo MD [address] [place] [phone] documented as of this encounter Visit Diagnoses Not on filedocumented in this encounter Additional Health Concerns Assessment Noted Time PHQ-9 Depression Total Score: 0 05/19/20 23 9:26 AM EDT documented as of this encounter Care Teams Shipping Receiving Clerk Relationship Specialty Start Date End Date Michelle Carcamo MD [address] [place] [phone] PCP - General Family Medicine 10/06/18 documented as of this encounter
--- OUTSIDE RECORDS SUMMARY | 2025-01-03 13:08 | XMS_ITS | Encounter Summary ---
Author Organization [employer] Address [address] [facility] 7t [place] [address] Care Team Providers Care Trestle Mechanic Name Role Phone Michelle Carcamo MD Primary Care Provider +1- [phone] Encounter Details Date Type Department Care Team (Late st Contact Info) Description 04/05/2024 Orders Only [facility] MEDICINE [address] [place], [place] [phone] Inga Astudillo MD 230 [place], [place] [phone] Primary hypertension Social History Tobacco Use Types [...] Description 02/17/2025 10:30 AM EDT Office Visit [facility] MEDICINE [address] [place] [address] Michelle Carcamo MD 230 [place] [address] documented as of this encounter Visit Diagnoses Diagnosis Primary hypertension Unspecified essential hypertension documented in this encounter Additional Health Concerns Assessment Noted Time PHQ-9 Depression Total Score: 0 05/19/20 23 9:26 AM EDT documented as of this encounter Care Teams Trestle Mechanic Relationship Specialty Start Date End Date Michelle Carcamo MD 230 [place], [place] [phone] PCP - General Family Medicine 10/06/18 documented as of this encounter
== END 2025-01-03 11:29 | disposition home or self-care (01) ==
LOC: HO.HHCL 11:28
PROVIDERS: Visit Provider Family Medicine
DX: E87.6 Hypokalemia (principal); E78.00 Pure hypercholesterolemia, unspecified
CPT/HCPCS: 36415; 80048; 80061; 80076

== ENCOUNTER 2025-02-07 12:43 | Outpatient (REF) | payer SELFPAY ==
--- NOTE | 2025-02-07 13:28 | MHC.AU.HA3 ---
Hearing Instrument Follow-Up- Binaural Date of Visit: 02/07/25 Right Ear: Alek, Model, Color, Serial Number: Peyman Hollins [id number] SN: [id number] Color: Silver [employer] Repair Warranty: 11/27/2022 [employer] Loss and Damage Warranty: 11/27/2022 [facility] Service Plan: Battery Size: 13 Manager Project Management/Slim Tube: Earmold/Dome/CShell/SlimTip:Microsonic skeleton Type of Wax Guard: Dispensed By: [facility] Date of Fittin09/10/2019 Left Ear: Alek, Model, Color, Serial Number: Peyman Hollins [id number] SN: [id number] Color: Silver [employer] Repair Warranty: 04/28/2019 [employer] Loss and Damage Warranty: USED [facility] Service Plan: Battery Size: 13 Manager Project Management/Slim Tube: Earmold/Dome/CShell/SlimTip: Microsonic skeleton Type of Wax Guard: Dispensed By: [facility] Date of Fittin02/15/2016 Follow-Up Summary: Left aid dropped of . Found tube occluded. Cleaned aid and earmold, re-tubed, listening check positive. Recommendations: Recommendations: Hearing instrument follow-up or maintenance as needed. Diagnosis Code(s): Primary Diagnosis: H90.3 Bilateral Sensorineural Hearing Loss Signature: Provider: Biju Rodriguez, [facility]
--- OUTSIDE RECORDS SUMMARY | 2025-02-07 14:09 | XMS_ITS | Clinical Summary ---
Author Organization [employer] Address [address] [facility] 7t [place] [address] Care Team Providers Care Cruise Guide Name Role Phone Michelle Carcamo MD Primary Care Provider +1- [phone] Allergies Active Allergy Reactions Criticality Noted Date [...] due after 08/30/2025 -eye care facilitated by [facility] -dental home is [facility] dental -health care proxy given and filed 07/28/24 Assessment & Plan (08/30/2024 9:57 AM EST): -next physical exam due after 08/30/2025 -eye care facilitated by [facility] -dental home is [facility] dental -health care proxy given and filed 07/28/24 Assessment & Plan (07/28/2024 9:53 AM EDT): -next physical exam due after 08/20/2024 -eye care facilitated by [facility] -dental home is [facility] dental -health care proxy given and filed 07/28/24 Assessment & Plan (08/20/2023 12:11 PM EST): -next physical exam due after 08/20/2024 -eye care facilitated by [facility] -dental home is [facility] dental Assessment & Plan (05/19/2023 9:44 [...] but insurance would not cover. Pt saw [facility] audiology 11/25/2019 Assessment & Plan [...] Encounters Date Type Department Care Team Description 01/17/[address] [address] Michelle Carcamo MD Appt cancel 02/17/2025 (I book the appt on 02/18/2025 at 10:00 am for lab.) 01/17/2025 Travel 12/17/2024 Population Health Risk Score [facility] () [address] [phone] Provider, Population Health Generic 11/18/[address] [address] Ana [place] Record Request (Serge is requesting notes from ENT.) 11/15/2024 10:30 AM EST Office Visit [address] [address] Michelle Carcamo MD Hypercholesterolemia (Primary Dx); Dietary counseling; Exercise counseling; Class 1 obesity due to excess calories with serious comorbidity and body mass index (BMI) of 30.0 to 30.9 in adult; Primary hypertension 11/15/[address] [address] Michelle Carcamo MD 11/15/2024 Travel 11/12/[address] [address] Ana [place] chartprep from Last 3 Months Immunizations Name Administration [...] Care Team (Late st Contact Info) Description 03/04/2025 9:00 AM EDT Office Visit [facility] MEDICINE [address] [place] [address] Michelle Carcamo MD [address] [place] [address] Health Maintenance Due Date Last Done Comments Alcohol/Substance Use Screening 07/28/2025 07/28/2024 COVID-19 Vaccine ( season) 2025 12/05/2021, 12/14/2020, 11/16/2020 Postponed from 06/06/2024 (Patient Refused) Depression Screening 07/28/2025 07/28/2024, 07/28/20 24 SDOH Screening 07/28/2025 07/28/2024 Tobacco Screening 11/15/2025 11/15/2024 Lipid Panel 01/03/2030 01/03/2025, 10/06, 04/05/2024, Additional history exists DTaP/Tdap/Td [...] PANEL Routine 01/03/2025 11:30 AM EDT Hypokalemia from Last 3 Months Results * (ABNORMAL) Hepatic Function Panel (01/03/2025 11:30 AM EDT) Bilirubin, Total 1.1(H) 0.0 - 1.0 mg/dL [facility] Bilirubin, Direct 0.3 0.0 - 0.5 mg/dL [facility] Aspartate Amino Transferase 30 5 - 37 U/L [facility] Alanine Aminotransferase 32 0 - 40 U/L [facility] Total Protein 7.1 6.5 - 8.0 g/dL [facility] Albumin Level 4.1 3.5 - 5.0 g/dL [facility] Alkaline Phosphatase 88 39 - 117 U/L [facility] Blood Venous blood specimen / Unknown 01/03/2025 11:30 AM EDT 01/03/2025 12:30 PM EDT Michelle Carcamo MD LAB BLOOD ORDERABLES Final Result Performing Organization Address [facility] Co de Phone Number [facility] [address] [place] [phone] * (ABNORMAL) Lipid Panel, Standard (01/03/2025 11:30 AM EDT) Triglycerides 136 <150 mg/dL [facility] Comment:Desirable Triglyceri de: less than 150 mg/dLBorderline High Triglyceride 150-199 mg/dLHigh Triglyceride: 200-499 mg/dLVery High Triglyceride: greater than or equal to 5OO mg/dL Cholesterol 185 <200 mg/dL [facility] Comment:Desirable Cholestero l: less than 200 mg/dLBorderline High Cholesterol: 200-239 mg/dLHigh Cholesterol: greater than 239 mg/dL LDL Cholesterol Calculated 115(H) <100 mg/dL [facility] Comment:Desirable LDL: less than 100 mg/dLNear Optimal/Above Optimal LDL: 110- 129 mg/dLBorderline High LDL: 130-159 mg/dLHigh LDL: 160-189 mg/dLVery High LDL: greater than or equal to 190 mg/dL HDL Cholesterol 43 >40 mg/dL [facility] Comment:Desirable HDL: great er than 40 mg/dL Note: This HDL assay may give artificially low results in patients with liver disease. Blood Venous blood specimen / Unknown 01/03/2025 11:30 AM EDT 01/03/2025 12:30 PM EDT Michelle Carcamo MD LAB BLOOD ORDERABLES Final Result Performing Organization Address [facility] Co de Phone Number [facility] [address] [place] [phone] * (ABNORMAL) Basic Metabolic Panel (01/03/2025 11:30 AM EDT) Sodium 141 135 - 145 mmol/L [facility] Potassium 3.9 3.3 - 5.1 mmol/L [facility] Chloride 105 96 - 108 mmol/L [facility] Carbon Dioxide 29 22 - 29 mmol/L [facility] Anion Gap 11(L) 12 - 20 [facility] Urea Nitrogen (BUN) 13 9 - 16 mg/dL [facility] Creatinine, Serum 0.82 0.5 - 1.4 mg/dL [facility] Estimated Glomerular Filt Rate >60 [facility] Comment:Chronic Kidney Disea se: Estimated GFR < 60 mL/min/[id number] Kidney Disease: Estimated GFR < 15 mL/min/1.73m2 Glucose 107 60 - 115 mg/dL [facility] Calcium 9.0 8.4 - 10.2 mg/dL [facility] Blood Venous blood specimen / Unknown 01/03/2025 11:30 AM EDT 01/03/2025 12:30 PM EDT Michelle Carcamo MD LAB BLOOD ORDERABLES Final Result [facility] [address] [place] [phone] from Last 3 Mon[address] Insurance [place] [address] [place] [id number] N FULL Advance Directives Documents on File Type Date Recorded Patient Cancer Genetics Assistant Expl anation Advance Directives and Living Will 07/29/2024 12:34 PM Health Care Proxy Advance Directives and Living Will 04/05/2024 Health Care Proxy 04/05/24 Care Teams Cruise Guide Relationship Specialty Start Date End Date Michelle Carcamo MD [address] [place] [phone] PCP - General Family Medicine 10/06/18
--- OUTSIDE RECORDS SUMMARY | 2025-02-07 14:09 | XMS_ITS | Encounter Summary ---
Author Organization [employer] Address [address] [facility] [address] 7t [place] [address] Care Team Providers Care Pants Presser Name Role Phone Michelle Carcamo MD Primary Care Provider +1- [phone] Reason for Visit * Reason Comments Med Refill Encounter Details Date Type Department Care Team ([facility] st Contact Info) Description 04/26/2024 Refill [facility] [address] [place] [address] Regla Cabrera MD [address] [place] [address] Social History Tobacco Use Types Packs/Day Years [...] t he electric, gas, oil or water [employer] threatened to shut off services in your [...] 9:00 AM EDT Office Visit [facility] MEDICINE [address] [place] [phone] Michelle Carcamo MD [address] [place] [address] documented as of this encounter Visit Diagnoses Not on filedocumented in this encounter Additional Health Concerns Assessment Noted Time PHQ-9 Depression Total Score: 0 05/19/20 23 9:26 AM EDT documented as of this encounter Care Teams Pants Presser Relationship Specialty Start Date End Date Michelle Carcamo MD [address] [place] [phone] PCP - General Family Medicine 10/06/18 documented as of this encounter
--- OUTSIDE RECORDS SUMMARY | 2025-02-07 14:09 | XMS_ITS | Encounter Summary ---
Author Organization [employer] Address [address] [facility] 7t [place] [address] Care Team Providers Care Nutrition Services Worker Name Role Phone Michelle Carcamo MD Primary Care Provider +1- [phone] Reason for Visit * Reason Comments Med Change Request Encounter Details Date Type Department Care Team ([facility] Contact Info) Description 08/19/2024 Refill [facility] MEDICINE [address] [place] [address] Michelle Carcamo MD 230 [place] [address] Hypokalemia Social History Tobacco Use Types Packs/Day [...] Description 03/04/2025 9:00 AM EDT Office Visit [facility] MEDICINE [address] [place] [address] Michelle Carcamo MD [address] [place] [address] documented as of this encounter Visit Diagnoses Diagnosis Hypokalemia Hypopotassemia documented in this encounter Additional Health Concerns Assessment Noted Time PHQ-9 Depression Total Score: 0 07/28/20 24 10:17 AM EDT documented as of this encounter Care Teams Nutrition Services Worker Relationship Specialty Start Date End Date Michelle Carcamo MD [address] [place] [phone] PCP - General Family Medicine 10/06/18 documented as of this encounter
--- OUTSIDE RECORDS SUMMARY | 2025-02-07 14:09 | XMS_ITS | Encounter Summary ---
Author Organization [employer] Address [address] [facility] 7t [place] [address] Care Team Providers Care Fan Balancer Name Role Phone Michelle Carcamo MD Primary Care Provider +1- [phone] Encounter Details Date Type Department Care Team (Late st Contact Info) Description 04/05/2024 Orders Only [facility] MEDICINE 230 [place], [place] [phone] Inga Astudillo MD [address] [place], [place] [phone] Primary hypertension Social History Tobacco Use Types [...] Description 03/04/2025 9:00 AM EDT Office Visit [facility] MEDICINE [address] [place] [address] Michelle Carcamo MD [address] [place] [address] documented as of this encounter Visit Diagnoses Diagnosis Primary hypertension Unspecified essential hypertension documented in this encounter Additional Health Concerns Assessment Noted Time PHQ-9 Depression Total Score: 0 05/19/20 9:26 AM EDT documented as of this encounter Care Teams Fan Balancer Relationship Specialty Start Date End Date Michelle Carcamo MD [address] [place] [address] PCP - General Family Medicine 10/06/18 documented as of this encounter
--- OUTSIDE RECORDS SUMMARY | 2025-02-07 14:09 | XMS_ITS | Encounter Summary ---
Author Organization [employer] [facility] Address [address] [facility] 7t [place] [address] Care Team Providers Care Data Processing Mechanic Name Role Phone Michelle Carcamo MD Primary Care Provider +1- [phone] Encounter Details Date Type Department Care Team (Latest Contact Info) Description 03/15/2021 Abstract [facility] CONVERSIONS Dental, Provider, DDS Social History Tobacco [...] Care Team ( st Contact Info) Description 03/04/2025 9:00 AM EDT Office Visit [facility] MEDICINE [address] [place] [address] Michelle Carcamo MD [address] [place] [address] documented as of this encounter Visit Diagnoses Not on filedocumented in this encounter Care Teams Data Processing Mechanic Relationship Specialty Start Date End Date Michelle Carcamo MD [address] [place], [place] [phone] PCP - General Family Medicine 10/06/18 documented as of this encounter
--- OUTSIDE RECORDS SUMMARY | 2025-02-07 14:09 | XMS_ITS | Encounter Summary ---
Author Organization [employer] Address [address] [facility] 7t [place] [address] Care Team Providers Care Staff Counselor Name Role Phone Michelle Carcamo MD Primary Care Provider +1- [phone] Encounter Details Date Type Department Care Team (Late st Contact Info) Description 07/28/2024 Orders Only [facility] MEDICINE [address] [place] [address] Michelle Carcamo MD [address] [place], [place] [phone] Hypokalemia Social History Tobacco Use Types Packs/Day [...] Description 03/04/2025 9:00 AM EDT Office Visit [facility] MEDICINE [address] [place] [address] Michelle Carcamo MD [address] [place] [address] documented as of this encounter Visit Diagnoses Diagnosis Hypokalemia Hypopotassemia documented in this encounter Additional Health Concerns Assessment Noted Time PHQ-9 Depression Total Score: 0 07/28/20 24 10:17 AM EDT documented as of this encounter Care Teams Staff Counselor Relationship Specialty Start Date End Date Michelle Carcamo MD [address] [place] [address] PCP - General Family Medicine 10/06/18 documented as of this encounter
--- OUTSIDE RECORDS SUMMARY | 2025-02-07 14:09 | XMS_ITS | Encounter Summary ---
Author Organization [employer] Address [address] [facility] [address] 7[address] [place] [address] Care Team Providers Care Yardage Control Clerk Name Role Phone Carlos AlbertoMichelle chadwick MD Primary Care Provider +1- [phone] Reason for Visit * Reason Comments Med Refill Encounter Details Date Type Department Care Team ([facility] st Contact Info) Description 06/14/2024 Refill [facility] MED [facility] PEDS [address] [place], [place] [phone] Venita Sparrow, ANP [address] [place] [address] Primary hypertension Social History Tobacco Use Types [...] Description 03/04/2025 9:00 AM EDT Office Visit [facility] MEDICINE 230 [place] [address] Michelle Carcamo MD [address] [place] [address] documented as of this encounter Visit Diagnoses Diagnosis Primary hypertension Unspecified essential hypertension documented in this encounter Additional Health Concerns Assessment Noted Time PHQ-9 Depression Total Score: 0 05/19/20 23 9:26 AM EDT documented as of this encounter Care Teams Yardage Control Clerk Relationship Specialty Start Date End Date Michelle Carcamo MD [address] [place] [address] PCP - General Family Medicine 10/06/18 documented as of this encounter
== END 2025-02-07 12:44 | disposition home or self-care (01) ==
LOC: HO.HAP 12:43
PROVIDERS: PCP Family Medicine; Visit Provider Family Medicine
DX: Z13.89 Encounter for screening for other disorder (principal)

== ENCOUNTER 2025-02-08 11:05 | Outpatient (REF) | payer SELFPAY ==
--- OUTSIDE RECORDS SUMMARY | 2025-02-08 12:53 | XMS_ITS | Encounter Summary ---
Author Organization [employer] Address [address] [facility] [address] [place] [address] Care Team Providers Care Stevedoring Superintendent Name Role Phone WatervilleMichelle MD Primary Care Provider +1- [phone] Reason for Visit * Reason Comments Med Refill Encounter Details Date Type Department Care Team ([facility] st Contact Info) Description 04/26/2024 Refill [facility] [address] [place] [address] Regla Cabrera MD [address] [place] [address] Social History Tobacco Use Types Packs/Day Years [...] t he electric, gas, oil or water [employer] threatened to shut off services in your [...] Description 03/04/2025 9:00 AM EDT Office Visit [facility] MEDICINE [address] [place] [address] Michelle Carcamo MD [address] [place] [address] documented as of this encounter Visit Diagnoses Not on filedocumented in this encounter Additional Health Concerns Assessment Noted Time PHQ-9 Depression Total Score: 0 05/19/20 23 9:26 AM EDT documented as of this encounter Care Teams Stevedoring Superintendent Relationship Specialty Start Date End Date Michelle Carcamo MD [address] [place] [address] PCP - General Family Medicine 10/06/18 documented as of this encounter
--- OUTSIDE RECORDS SUMMARY | 2025-02-08 12:53 | XMS_ITS | Encounter Summary ---
Author Organization [employer] Address [address] [facility] 7t [place] [address] Care Team Providers Care Barrel Rifler Name Role Phone Michelle Carcamo MD Primary Care Provider +1- [phone] Encounter Details Date Type Department Care Team (Late st Contact Info) Description 07/28/2024 Orders Only [facility] MEDICINE [address] [place] [address] Michelle Carcamo MD [address] [place] [address] Hypokalemia Social History Tobacco Use Types Packs/Day [...] Description 03/04/2025 9:00 AM EDT Office Visit [facility] MEDICINE [address] [place] [address] Michelle Carcamo MD [address] [place] [address] documented as of this encounter Visit Diagnoses Diagnosis Hypokalemia Hypopotassemia documented in this encounter Additional Health Concerns Assessment Noted Time PHQ-9 Depression Total Score: 0 07/28/20 24 10:17 AM EDT documented as of this encounter Care Teams Barrel Rifler Relationship Specialty Start Date End Date Michelle Carcamo MD [address] [place] [address] PCP - General Family Medicine 10/06/18 documented as of this encounter
--- OUTSIDE RECORDS SUMMARY | 2025-02-08 12:53 | XMS_ITS | Encounter Summary ---
Author Organization [employer] Address [address] [facility] [address] [place] [address] Care Team Providers Care Light Equipment Operator Name Role Phone [place], Michelle KRAMER Primary Care Provider +1- [phone] Reason for Visit * Reason Comments Med Refill Encounter Details Date Type Department Care Team ([facility] st Contact Info) Description 06/14/2024 Refill [facility] MED & PEDS [address] [place] [address] Venita Sparrow, ANP [address] [place] [address] Primary hypertension Social History Tobacco Use Types [...] t he electric, gas, oil or water [employer] threatened to shut off services in your [...] Description 03/04/2025 9:00 AM EDT Office Visit [facility] MEDICINE [address] [place] [address] Michelle Carcamo MD [address] [place] [address] documented as of this encounter Visit Diagnoses Diagnosis Primary hypertension Unspecified essential hypertension documented in this encounter Additional Health Concerns Assessment Noted Time PHQ-9 Depression Total Score: 0 05/19/20 23 9:26 AM EDT documented as of this encounter Care Teams Light Equipment Operator Relationship Specialty Start Date End Date Michelle Carcamo MD [address] [place] [address] PCP - General Family Medicine 10/06/18 documented as of this encounter
--- OUTSIDE RECORDS SUMMARY | 2025-02-08 12:53 | XMS_ITS | Encounter Summary ---
Author Organization [employer] Address [address] [facility] 7t [place] [address] Care Team Providers Care Retail Marketing Specialist Name Role Phone LikelyMichelle chadwick MD Primary Care Provider +1- [phone] Encounter Details Date Type Department Care Team (Late st Contact Info) Description 04/05/2024 Orders Only [facility] MEDICINE [address] [place], [place] [phone] Inga Astudillo MD [address] [place], [place] [phone] Primary hypertension Social History Tobacco Use Types [...] Description 03/04/2025 9:00 AM EDT Office Visit [facility] MEDICINE [address] [place] [address] Michelle Carcamo MD [address] [place] [address] documented as of this encounter Visit Diagnoses Diagnosis Primary hypertension Unspecified essential hypertension documented in this encounter Additional Health Concerns Assessment Noted Time PHQ-9 Depression Total Score: 0 05/19/20 9:26 AM EDT documented as of this encounter Care Teams Retail Marketing Specialist Relationship Specialty Start Date End Date Michelle Carcamo MD [address] [place], [place] [phone] PCP - General Family Medicine 10/06/18 documented as of this encounter
--- OUTSIDE RECORDS SUMMARY | 2025-02-08 12:53 | XMS_ITS | Encounter Summary ---
Author Organization [employer] [facility] Address [address] [facility] 7t [place] [address] Care Team Providers Care Peer Educator Name Role Phone Michelle Carcamo MD Primary Care Provider +1- [phone] Encounter Details Date Type Department Care Team [...] [facility] MEDICINE [address] [place] [address] Michelle Carcamo MD [address] [place] [address] documented as of this encounter Visit Diagnoses Not on filedocumented in this encounter Care Teams Peer Educator Relationship Specialty Start Date End Date Michelle Carcamo MD [address] [place], [place] [phone] PCP - General Family Medicine 10/06/18 documented as of this encounter
--- OUTSIDE RECORDS SUMMARY | 2025-02-08 12:53 | XMS_ITS | Clinical Summary ---
Author Organization [employer] Address [address] [facility] 7t [place] [address] Care Team Providers Care Replenisher Name Role Phone CoffeyMichelle chadwick MD Primary Care Provider +1- [phone] Allergies Active Allergy Reactions Criticality Noted Date [...] due after 08/30/2025 -eye care facilitated by [facility] -dental home is [facility] dental -health care proxy given and filed 07/28/24 Assessment & Plan (08/30/2024 9:57 AM EST): -next physical exam due after 08/30/2025 -eye care facilitated by [facility] -dental home is [facility] dental -health care proxy given and filed 07/28/24 Assessment & Plan (07/28/2024 9:53 AM EDT): -next physical exam due after 08/20/2024 -eye care facilitated by [facility] -dental home is [facility] dental -health care proxy given and filed 07/28/24 Assessment & Plan (08/20/2023 12:11 PM EST): -next physical exam due after 08/20/2024 -eye care facilitated by [facility] -dental home is [facility] dental Assessment & Plan (05/19/2023 9:44 [...] but insurance would not cover. Pt saw [facility] audiology 11/25/2019 Assessment & Plan (04/05/2024 [...] Type Department Care Team Description 01/17/2025 Telephone [facility] [address] [place] [phone] Michelle Carcamo MD Appt cancel 02/17/2025 (I book the appt on 02/18/2025 at 10:00 am for lab.) 01/17/2025 Travel 12/17/2024 Population Health Risk Score [facility] (C[facility]) Department [address] [place] [phone] Provider, Population Health Generic 11/18/[address] [address] Ana Perkins [place] Record Request (Serge is requesting notes from ENT.) 11/15/2024 10:30 AM EST Office Visit [address] [address] Michelle Carcamo MD Hypercholesterolemia (Primary Dx); Dietary counseling; Exercise counseling; Class 1 obesity due to excess calories with serious comorbidity and body mass index (BMI) of 30.0 to 30.9 in adult; Primary hypertension 11/15/[address] [address] Michelle Carcamo MD 11/15/2024 Travel 11/12/[address] [address] Ana Perkins MA chartprep from Last 3 [...] 03/04/2025 9:00 AM EDT Office Visit [facility] [address] [place] [address] Michelle Carcamo MD [address] [place] [address] Health Maintenance Due Date Last Done Comments [...] Bilirubin, Total 1.1(H) 0.0 - 1.0 mg/dL [facility] Bilirubin, Direct 0.3 0.0 - 0.5 mg/dL [facility] Aspartate Amino Transferase 30 5 - 37 U/L [facility] Alanine Aminotransferase 32 0 - 40 U/L [facility] Total Protein 7.1 6.5 - 8.0 g/dL [facility] Albumin Level 4.1 3.5 - 5.0 g/dL [facility] Alkaline Phosphatase 88 39 - 117 U/L [facility] Blood Venous blood specimen / Unknown 01/03/2025 11:30 AM EDT 01/03/2025 12:30 PM EDT Michelle Carcamo MD LAB BLOOD ORDERABLES Final Result Performing Organization Address [facility] Co de Phone Number [facility] [address] [place] [address] [phone] * (ABNORMAL) Lipid Panel, Standard (01/03/2025 11:30 AM EDT) Triglycerides 136 <150 mg/dL [facility] Comment:Desirable Triglyceri de: less than 150 mg/dLBorderline High Triglyceride 150-199 mg/dLHigh Triglyceride: 200-499 mg/dLVery High Triglyceride: greater than or equal to 5OO mg/dL Cholesterol 185 <200 mg/dL [facility] Comment:Desirable Cholestero l: less than 200 mg/dLBorderline High Cholesterol: 200-239 mg/dLHigh Cholesterol: greater than 239 mg/dL LDL Cholesterol Calculated 115(H) <100 mg/dL [facility] Comment:Desirable LDL: less than 100 mg/dLNear Optimal/Above Optimal LDL: 110- 129 mg/dLBorderline High LDL: 130-159 mg/dLHigh LDL: 160-189 mg/dLVery High LDL: greater than or equal to 190 mg/dL HDL Cholesterol 43 >40 mg/dL [facility] Comment:Desirable HDL: great er than 40 mg/dL Note: This HDL assay may give artificially low results in patients with liver disease. Blood Venous blood specimen / Unknown 01/03/2025 11:30 AM EDT 01/03/2025 12:30 PM EDT Michelle Carcamo MD LAB BLOOD ORDERABLES Final Result Performing Organization Address [facility]/ZIP Co de Phone Number [facility] [address] [place] [address] [phone] * (ABNORMAL) Basic Metabolic Panel (01/03/2025 11:30 AM EDT) Sodium 141 135 - 145 mmol/L [facility] Potassium 3.9 3.3 - 5.1 mmol/L [facility] Chloride 105 96 - 108 mmol/L [facility] Carbon Dioxide 29 22 - 29 mmol/L [facility] Anion Gap 11(L) 12 - 20 [facility] Urea Nitrogen (BUN) 13 9 - 16 mg/dL [facility] Creatinine, Serum 0.82 0.5 - 1.4 mg/dL [facility] Estimated Glomerular Filt Rate >60 [facility] Comment:Chronic Kidney Disea se: Estimated GFR < 60 mL/min/1.10q0Eqhdow Kidney Disease: Estimated GFR < 15 mL/min/1.73m2 Glucose 107 60 - 115 mg/dL [facility] Calcium 9.0 8.4 - 10.2 mg/dL [facility] Blood Venous blood specimen / Unknown 01/03/2025 11:30 AM EDT 01/03/2025 12:30 PM EDT Michelle Carcamo MD LAB BLOOD ORDERABLES Final Result [facility] [address] [place] [address] [phone] from Last 3 Months Insurance MEDICARE N FULL Advance Directives Documents on File Type Date Recorded Patient Graphic Design Assistant Expl anation Advance Directives and Living Will 07/29/2024 12:34 PM Health Care Proxy Advance Directives and Living Will 04/05/2024 Health Care Proxy 04/05/24 Care Teams Replenisher Relationship Specialty Start Date End Date Coffey, MD Michelle [address] [place] [phone] PCP - General Family Medicine 10/06/18
--- OUTSIDE RECORDS SUMMARY | 2025-02-08 12:53 | XMS_ITS | Encounter Summary ---
Author Organization [employer] Address [address] [facility] 7t [place] [address] Care Team Providers Care Lime Kiln Operator Name Role Phone Michelle Carcamo MD Primary Care Provider +1- [phone] Reason for Visit * Reason Comments Med Change Request Encounter Details Date Type Department Care Team ([facility] Contact Info) Description 08/19/2024 Refill [facility] [address] [place] [address] Michelle Carcamo MD [address] [place] [address] Hypokalemia Social History Tobacco Use Types Packs/Day [...] Description 03/04/2025 9:00 AM EDT Office Visit [facility] [address] [place] [phone] Michelle Carcamo MD [address] [place] [phone] documented as of this encounter Visit Diagnoses Diagnosis Hypokalemia Hypopotassemia documented in this encounter Additional Health Concerns Assessment Noted Time PHQ-9 Depression Total Score: 0 07/28/20 24 10:17 AM EDT documented as of this encounter Care Teams Lime Kiln Operator Relationship Specialty Start Date End Date Michelle Carcamo MD [address] [place] [phone] PCP - General Family Medicine 10/06/18 documented as of this encounter
== END 2025-02-08 11:06 | disposition home or self-care (01) ==
LOC: HO.HAP 11:05
PROVIDERS: Visit Provider Family Medicine
DX: Z46.1 Encounter for fitting and adjustment of hearing aid (principal); H90.3 Sensorineural hearing loss, bilateral
CPT/HCPCS: 92593

== ENCOUNTER 2025-04-06 11:15 | Outpatient (REF) | payer MEDICARE, MEDICAID, SELFPAY ==
--- OUTSIDE RECORDS SUMMARY | 2025-04-06 12:03 | XMS_ITS | Clinical Summary ---
Author Organization [employer] Address [address] [facility] 7t [place] [address] Care Team Providers Care Senior Data Analyst Name Role Phone Michelle Carcamo MD Primary Care Provider +1- [phone] Allergies Active Allergy Reactions Criticality Noted Date [...] increased 08/30/24 90 tablet 3 4 Active atorvastatin (Lipitor) 20 MG tabletIndications :Hypercholesterol emia Take 1 tablet (20 mg) by mouth Once per day. 30 tablet 11 5 11/15/19 26 Active Multiple Vitamin (multivitamin) tabletIndications :Concern about food or nutrition Take 1 tablet by mouth Once per day. 90 tablet 3 5 Active Active Problems Problem Noted Date Diagnosed Date Hypokalemia 07/28/2024 Overview (03/04/2025): Lab Results Component Value Date K 3.9 01/03/2025 K 3.7 10/18/2024 K 3.1 (L) 07/28/2024 -will recheck on BMP and will also check magnesium in Mid-October -recent labs with significant improvement. Pt reports feeling unwell form his potassium. Will stop potassium 10 meq 03/04/25. -recheck labs in 1 month. Assessment & Plan (03/04/2025 9:07 AM EDT): Lab Results Component Value Date K 3.9 01/03/2025 K 3.7 10/18/2024 K 3.1 (L) 07/28/2024 -will recheck on BMP and will also check magnesium in Mid-October -recent labs with significant improvement. Pt reports feeling unwell form his potassium. Will stop potassium 10 meq 03/04/25. -recheck labs in 1 month. Assessment & Plan (08/30/2024 9:55 AM EST): [...] due after 08/30/2025 -eye care facilitated by [facility] -dental home is [facility] dental -health care proxy given and filed 07/28/24 Assessment & Plan (08/30/2024 9:57 AM EST): -next physical exam due after 08/30/2025 -eye care facilitated by [facility] -dental home is [facility] dental -health care proxy given and filed 07/28/24 Assessment & Plan (07/28/2024 9:53 AM EDT): -next physical exam due after 08/20/2024 -eye care facilitated by [facility] -dental home is [facility] dental -health care proxy given and filed 07/28/24 Assessment & Plan (08/20/2023 12:11 PM EST): -next physical exam due after 08/20/2024 -eye care facilitated by [facility] -dental home is [facility] dental Assessment & Plan (05/19/2023 9:44 AM EDT): -next physical exam due will see Pt back in 2 months. -eye care facilitated by -dental home is Vitamin D deficiency 05/19/2023 Overview (03/04/2025): Lab Results Component Value Date [id number] 33.0 05/19/2023 Hx of syphilis 05/19/2023 Overview (05/19/2023): Syphilis reactive with confirmatory 11/2018, RPR was non reactive. Assessment & Plan (05/19/2023 9:46 AM EDT): Syphilis reactive with confirmatory 11/2018, RPR was non reactive. 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 Pt is unaware of movemnt. No other evidence of dyskinesia. Not on any meds that should cause this. [facility]. Assessment & Plan (08/20/2023 12:11 PM EST): Quesion of pill rolling tremor on exam. Pt is unaware of movemnt. No other evidence of dyskinesia. Not on any meds that should cause this. Continue to [facility] to monitor for evidence of parkinsons. 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 Pt saw [facility] audiology 11/25/2019 Assessment & Plan (04/05/2024 8:37 AM EDT): Uses hearing aids Assessment & Plan (08/20/2023 12:11 PM EST): Uses hearing aids Assessment & Plan (05/19/2023 11:06 AM EDT): Uses hearing aids Anxiety 06/04/2012 Varicose veins of left lower extremity 2 Hypertension 04/02/2012 Overview (03/04/2025): -Blood pressure is controlled 03/04/25. Pt does not want to change medications. It has taken a decade to get a regimin that he agrees to take daily. -Continue lifestyle modifications -Continue current medications -Continue hydrochlorothiazide increased to 25 mg daily 08/30/25 -Continue amlodipine 5 mg daily 08/30/24 -Stop potassium 10 meq 03/04/25 Assessment & Plan (03/04/2025 9:06 AM EDT): -Blood pressure is controlled 03/04/25. Pt does not want to change medications. It has taken a decade to get a regimin that he agrees to take daily. -Continue lifestyle modifications -Continue current medications -Continue hydrochlorothiazide increased to 25 mg daily 08/30/25 -Continue amlodipine 5 mg daily 08/30/24 -Stop potassium 10 meq 03/04/25 Assessment & Plan (11/15/2024 12:21 PM EST): [...] modifications -Continue current medications Hypercholesterolemia 04/02/2012 Overview (03/04/2025): Lab Results Component Value Date CHOL 185 01/03/2025 CHOL 296 (H) 10/18/2024 TRIG 136 01/03/2025 TRIG 288 (H) 10/18/2024 HDL 43 01/03/2025 HDL 42 10/18/2024 LDLCHOLCAL 115 (H) 01/03/2025 LDLCHOLCAL 197 (H) 10/18/2024 -continue lifestyle modifications -pt self discontinued multiple meds, will try again atorvastatin 20mg at bedtime 11/15/24 - Ordered labs December 2024, improved Assessment & Plan (03/04/2025 9:07 AM EDT): Lab Results Component Value Date CHOL 185 01/03/2025 CHOL 296 (H) 10/18/2024 TRIG 136 01/03/2025 TRIG 288 (H) 10/18/2024 HDL 43 01/03/2025 HDL 42 10/18/2024 LDLCHOLCAL 115 (H) 01/03/2025 LDLCHOLCAL 197 (H) 10/18/2024 -continue lifestyle modifications -pt self discontinued multiple meds, will try again atorvastatin 20mg at bedtime 11/15/24 - Ordered labs December 2024, improved Assessment & Plan (11/15/2024 12:20 PM EST): [...] Encounters Date Type Department Care Team Description 03/04/2025 9:00 AM EDT Office Visit [facility] [address] [place] [phone] Michelle Carcamo MD Hypokalemia (Primary Dx); Primary hypertension; Hypercholesterolemia; Class 1 obesity due to excess calories with serious comorbidity and body mass index (BMI) of 31.0 to 31.9 in adult; Dietary counseling; Exercise counseling; Concern about food or nutrition 03/04/2025 Travel 03/03/2025 Telephone [facility] [address] [place] [address] Michelle Carcamo MD Chart Prep 01/17/2025 Telephone [facility] [address] [place] [address] Michelle Carcamo MD Appt cancel 02/17/2025 (I book the appt on 02/18/2025 at 10:00 am for lab.) 01/17/2025 Travel from Last 3 Months Immunizations Immunization Administration Dates Next Due Influenza High-dose Quadriva [...] Sign Reading Time Taken Comments Blood Pressure 138/74 03/04/2025 8:41 AM EDT Pulse 60 03/04/2025 8:41 AM EDT Temperature 36.7 C (98 F) 03/04/2025 8:41 AM EDT Respiratory Rate 12 03/04/2025 8:41 AM EDT Oxygen Saturation 98% 11/15/2024 10:37 AM EST Inhaled Oxygen Concentration - - Weight 89.9 kg (198 lb 3.2 oz) 03/04/2025 8:41 A M EDT Height 167.6 cm (5' 6 ) 03/04/2025 8:41 AM EDT Body Mass Index 31.99 03/04/2025 8:41 AM EDT Plan of Treatment Upcoming Encounters Date Type Department Care Team (Late st Contact Info) Description 05/11/2025 9:30 AM EDT Office Visit [facility] [address] [place] [address] Michelle Carcamo MD [address] [place] [address] Health Maintenance Due Date Last Done Comments Alcohol/Substance Use Screening 07/28/2025 07/28/2024 COVID-19 Vaccine ( season) 2025 12/05/2021, 12/14/2020, 11/16/2020 Postponed from 06/06/2024 (Patient Refused) Depression Screening 07/28/2025 07/28/2024, 07/28/20 24 SDOH Screening 07/28/2025 07/28/2024 Tobacco Screening 03/04/2026 03/04/2025 Lipid Panel 01/03/2030 01/03/2025, 10/06, 04/05/2024, Additional [...] patient's age to complete this topic Meningococcal B Vaccine Aged Out No l onger eligible based on patient's age to complete [...] Routine 01/03/2025 11:30 AM EDT Hypercholesterolemi a from Last 3 Months or Most Recently Relevant to Health Maintenance Results * (ABNORMAL) Lipid Panel, Standard (01/03/2025 11:30 AM EDT) Triglycerides 136 <150 mg/dL [facility] Comment:Desirable Triglyceri de: less than 150 mg/dLBorderline High Triglyceride 150-199 mg/dLHigh Triglyceride: 200-499 mg/dLVery High Triglyceride: greater than or equal to 5OO mg/dL Cholesterol 185 <200 mg/dL [facility] Comment:Desirable Cholestero l: less than 200 mg/dLBorderline High Cholesterol: 200-239 mg/dLHigh Cholesterol: greater than 239 mg/dL LDL Cholesterol Calculated 115(H) <100 mg/dL [facility] Comment:Desirable LDL: less than 100 mg/dLNear Optimal/Above Optimal LDL: 110- 129 mg/dLBorderline High LDL: 130-159 mg/dLHigh LDL: 160-189 mg/dLVery High LDL: greater than or equal to 190 mg/dL HDL Cholesterol 43 >40 mg/dL [facility] Comment:Desirable HDL: great er than 40 mg/dL Note: This HDL assay may give artificially low results in patients with liver disease. Blood Venous blood specimen / Unknown 01/03/2025 11:30 AM EDT 01/03/2025 12:30 PM EDT Michelle Carcamo MD LAB BLOOD ORDERABLES Final Result [facility] [address] [place] [address] [phone] from Last 3 Months or Most Recently Relevant to Health Maintenance Insurance MEDICARE [facility] FULL Advance Directives Documents on File Type Date Recorded Patient Supervisor Powdered Metal Expl anation Advance Directives and Living Will 07/29/2024 12:34 PM Health Care Proxy Advance Directives and Living Will 04/05/2024 Health Care Proxy 04/05/24 Care Teams Senior Data Analyst Relationship Specialty Start Date End Date Michelle Carcamo MD [address] [place] [phone] PCP - General Family Medicine 10/06/18
[2025-04-06 13:39] LABS: Anion Gap 11 (12-20); Blood Urea Nitrogen 16 mg/dL (9-16); Calcium 9.1 mg/dL (8.4-10.2); Carbon Dioxide 29 mmol/L (22-29); Chloride 108 mmol/L (96-108); Estimated Glomerular Filt Rate > 60; Potassium 2.9 mmol/L (3.3-5.1); Sodium 145 mmol/L (135-145)
== END 2025-04-06 11:16 | disposition home or self-care (01) ==
LOC: HO.HHCL 11:15
PROVIDERS: PCP Family Medicine; Visit Provider Family Medicine
DX: E87.6 Hypokalemia (principal)
CPT/HCPCS: 36415; 80048

== ENCOUNTER 2025-05-03 11:54 | Outpatient (REF) | payer MEDICARE, MEDICAID, SELFPAY ==
[2025-05-03 13:46] LABS: Anion Gap 11 (12-20); Blood Urea Nitrogen 12 mg/dL (9-16); Calcium 9.2 mg/dL (8.4-10.2); Carbon Dioxide 29 mmol/L (22-29); Chloride 107 mmol/L (96-108); Estimated Glomerular Filt Rate > 60; Potassium 3.5 mmol/L (3.3-5.1); Sodium 143 mmol/L (135-145)
== END 2025-05-03 11:55 | disposition home or self-care (01) ==
LOC: HO.HHCL 11:54
PROVIDERS: PCP Family Medicine; Visit Provider Family Medicine
DX: E87.6 Hypokalemia (principal)
CPT/HCPCS: 36415; 80048

== ENCOUNTER 2025-06-21 12:10 | Outpatient (REF) | payer SELFPAY ==
--- OUTSIDE RECORDS SUMMARY | 2025-06-21 16:17 | XMS_ITS | Encounter Summary ---
Author Organization [employer] Address [address] [address] 7t [place] [address] Care Team Providers Care Sonography Technician Name Role Phone Michelle Carcamo MD Primary Care Provider +1- [phone] Encounter Details Date Type Department Care Team ([facility] st Contact Info) Description 07/28/2024 Orders Only [facility] [address] [place] [address] Michelle Carcamo MD [address] [place] [address] Hypokalemia Social History Tobacco Use Types Packs/Day [...] AM EDT documented as of this encounter Functional Status * Over the past 2 weeks, how often have you been bothered by any of the following problems? Question Answer Date of Assessment Author Patient Health Questionnaire -2 Score 0 07/28/2024 10:17 AM Leonela Keyes MA * Over the last 2 weeks, how often have you been bothered by any of the following problems? Question Answer Date of Assessment Author Feeling nervous, anxious, or on edge 0 07/28/2024 10:17 AM Leonela Keyes MA Not being able to stop or co ntrol worrying 0 07/28/2024 10:17 AM Leonela Keyes MA Worrying too much about diff erent things 0 07/28/2024 10:17 AM Leonela Keyes [place] Trouble relaxing 0 07/28/2024 10:17 AM Leonela Keyes [place] Being so restless that it is hard to sit still 0 07/28/2024 10:17 AM Leonela Keyes MA Becoming easily annoyed or irritable 0 07/28/2024 10:17 AM Leonela Keyes MA Feeling afraid as if somethi ng awful might happen 0 07/28/2024 10:17 AM Leonela Keyes MA NITISH-7 Total Score 0 07/28/2024 10:17 AM Leonela Keyes MA * Over the past 2 weeks, how often have you been bothered by any of the following problems? Question Answer Date of Assessment Author Little interest or pleasure in doing things Not at all 07/28/2024 10:17 AM Leonela Keyes MA Feeling down, depressed, or hopeless Not at all 07/28/2024 10:17 AM Leonela Keyes MA Trouble falling or staying asleep, or sleeping too much Not at all 07/28/2024 10:17 AM Leonela Keyes MA Feeling tired or having little energy Not at all 07/28/2024 10:17 AM Leonela Keyes [place] Poor appetite or overeating Not at all 07/28/2024 10 :17 AM Leonela Keyes MA Feeling bad about yourself - or that you are a failure or have let yourself or your family down Not at all 07/28/2024 10:17 AM Leonela Keyes MA Trouble concentrating on things, such as reading the newspaper or watching television Not at all 07/28/2024 10:17 AM Leonela Keyes MA Moving or speaking so slowly that other people could have noticed? Or the opposite - being so fidgety or restless that you have been moving around a lot more than usual. Not at all 07/28/2024 10:17 AM Leonela Keyes MA Thoughts that you would be better off or hurting yourself in some way Not at all 07/28/2024 10:17 AM Lory Keyes MA Patient Health Questionnaire-9 Score 0 07/28/2024 10:17 AM Bita Keyes ra, [place] documented as of this encounter Plan of Treatment Upcoming Encounters Date Type Department Care Team (Late st Contact Info) Description 08/29/2025 9:15 AM EST Office Visit [facility] [address] [place] [address] Michelle Carcamo MD [address] [place] [address] documented as of this encounter Visit Diagnoses Diagnosis Hypokalemia Hypopotassemia documented in this encounter Additional Health Concerns Assessment Noted Time PHQ-9 Depression Total Score: 0 07/28/20 24 10:17 AM EDT documented as of this encounter Care Teams Sonography Technician Relationship Specialty Start Date End Date Michelel Carcamo MD [address] [place] [address] PCP - General Family Medicine 10/06/18 documented as of this encounter
--- OUTSIDE RECORDS SUMMARY | 2025-06-21 16:17 | XMS_ITS | Encounter Summary ---
Author Organization [employer] Address [address] [facility] 7t [place] [address] Care Team Providers Care Digital Marketing Officer Name Role Phone Michelle Carcamo MD Primary Care Provider +1- [phone] Encounter Details Date Type Department Care Team (Latest Contact Info) Description 03/15/2021 Abstract [facility] Dental, Provider, DDS Social History [...] Description 08/29/2025 9:15 AM EST Office Visit [facility] [address] [place] [address] Michelle Carcamo MD [address] [place] [phone] documented as of this encounter Visit Diagnoses Not on filedocumented in this encounter Care Teams Digital Marketing Officer Relationship Specialty Start Date End Date Michelle Carcamo MD [address] [place] [address] [phone] PCP - General Family Medicine 10/06/18 documented as of this encounter
--- OUTSIDE RECORDS SUMMARY | 2025-06-21 16:17 | XMS_ITS | Encounter Summary ---
Author Organization [employer] Address [address] [facility] [address] [facility] [address] [place] [address] Care Team Providers Care Program Manager Transportation Name Role Phone Michelle Carcamo MD Primary Care Provider +1- [phone] Reason for Visit * Reason Comments Med Refill Encounter Details Date Type Department Care Team (Late st Contact Info) Description 06/14/2024 Refill [facility] [address] [place], [place] [phone] Venita Sparrow, ANP [address] [place] [address] Primary hypertension Social History Tobacco Use Types [...] Description 08/29/2025 9:15 AM EST Office Visit [facility] [address] [place] [address] Michelle Carcamo MD [address] [place] [phone] documented as of this encounter Visit Diagnoses Diagnosis Primary hypertension Unspecified essential hypertension documented in this encounter Additional Health Concerns Assessment Noted Time PHQ-9 Depression Total Score: 0 05/19/20 23 9:26 AM EDT documented as of this encounter Care Teams Program Manager Transportation Relationship Specialty Start Date End Date Michelle Carcamo MD [address] [place] [phone] PCP - General Family Medicine 10/06/18 documented as of this encounter
--- OUTSIDE RECORDS SUMMARY | 2025-06-21 16:17 | XMS_ITS | Encounter Summary ---
Author Organization [employer] Address [address] 7t [place] [address] Care Team Providers Care Trolley Wire Installer Name Role Phone Michelle Carcamo MD Primary Care Provider +1- [phone] Encounter Details Date Type Department Care Team ([facility] st Contact Info) Description 04/05/2024 Orders Only [facility] MED[facility]INE [address] [place], [place] [phone] Inga Astudillo MD [address] [place] [address] Primary hypertension Social History Tobacco Use Types [...] Description 08/29/2025 9:15 AM EST Office Visit [facility] MED[facility]INE [address] [place] [phone] Michelle Carcamo MD 230 [place] [address] documented as of this encounter Visit Diagnoses Diagnosis Primary hypertension Unspecified essential hypertension documented in this encounter Additional Health Concerns Assessment Noted Time PHQ-9 Depression Total Score: 0 05/19/20 23 9:26 AM EDT documented as of this encounter Care Teams Trolley Wire Installer Relationship Specialty Start Date End Date Michelle Carcamo MD [address] [place] [address] PCP - General Family Medicine 10/06/18 documented as of this encounter
--- OUTSIDE RECORDS SUMMARY | 2025-06-21 16:17 | XMS_ITS | Encounter Summary ---
Author Organization [employer] Address [address] [facility] 7t [place] [address] Care Team Providers Care Offset Press Assistant Name Role Phone Michelle Carcamo MD Primary Care Provider +1- [phone] Reason for Visit * Reason Comments Med Change Request Encounter Details Date Type Department Care Team ([facility] st Contact Info) Description 08/19/2024 Refill [facility] 230 [place] [address] Michelle Carcamo MD 230 [place] [address] Hypokalemia Social History Tobacco Use Types Packs/Day [...] Description 08/29/2025 9:15 AM EST Office Visit [facility] [address] [place] [phone] Michelle Carcamo MD 230 [place] [address] documented as of this encounter Visit Diagnoses Diagnosis Hypokalemia Hypopotassemia documented in this encounter Additional Health Concerns Assessment Noted Time PHQ-9 Depression Total Score: 0 07/28/20 24 10:17 AM EDT documented as of this encounter Care Teams Offset Press Assistant Relationship Specialty Start Date End Date Michelle Carcamo MD 230 [place] [address] PCP - General Family Medicine 10/06/18 documented as of this encounter
--- OUTSIDE RECORDS SUMMARY | 2025-06-21 16:17 | XMS_ITS | Clinical Summary ---
Author Organization [employer] Address [address] [facility] 7t [place] [address] Care Team Providers Care Horse Racetrack Manager Name Role Phone Michelle Carcamo MD Primary Care Provider +1- [phone] Allergies Active Allergy Reactions Criticality Noted Date Comments Lisinopril 03/23/2019 Other reaction(s): Hives / Skin Rash Medications valACYclovir (Valtrex) 500 MG tabletIndications :Herpes simplex TAKE 1 TABLET BY MOUTH TWICE A DAY FOR 3 DAYS 18 tablet 3 4 Active Multiple Vitamin (multivitamin) tabletIndications :Concern about food or nutrition Take 1 tablet by mouth Once per day. 90 tablet 3 5 Active atorvastatin (Lipitor) 20 MG tabletIndications :Hypercholesterol emia Take 1 tablet (20 mg) by mouth Once per day. 90 tablet 3 5 05/11/20 26 Active potassium chloride CR (Klor-Con M10) 10 MEQ ER tabletIndications :Hypokalemia Take 2 tablets daily for 5 days, then take 1 tablet daily. Do not crush or chew. 35 tablet 11 5 Active amLODIPine (Norvasc) 5 MG tabletIndications :Primary hypertension TAKE 1 TABLET BY MOUTH EVERY MORNING 90 tablet 3 5 Active hydroCHLOROthiazi de (HYDRODiuril) 25 MG tabletIndications :Primary hypertension TAKE 1 TABLET BY MOUTH EVERY MORNING-spanis h, dose increased 08/30/24 90 tablet 3 5 Active Active Problems Problem Noted Date Diagnosed Date Hypokalemia 07/28/2024 Overview (05/11/2025): Lab Results Component Value Date K 3.5 05/03/2025 K 2.9 (LL) 04/06/2025 K 3.9 01/03/2025 -will recheck on BMP and will also check magnesium in Mid-October -recent labs with significant improvement. Pt reports feeling unwell form his potassium. Will stop potassium 10 meq 03/04/25. -recheck labs in 1 month. -04/06/25 hypokalemia persisted likely due to hydrochlorothiazide. Will restart potassium 10 meq 04/06/25. - 05/03/25 potassium back to normal. Will continue potassium supplementation. Assessment & Plan (05/11/2025 10:01 AM EDT): Lab Results Component Value Date K 3.5 05/03/2025 K 2.9 (LL) 04/06/2025 K 3.9 01/03/2025 -will recheck on BMP and will also check magnesium in Mid-October -recent labs with significant improvement. Pt reports feeling unwell form his potassium. Will stop potassium 10 meq 03/04/25. -recheck labs in 1 month. -04/06/25 hypokalemia persisted likely due to hydrochlorothiazide. Will restart potassium 10 meq 04/06/25. - 05/03/25 potassium back to normal. Will continue potassium supplementation. Orders: potassium chloride CR (Klor-Con M10) 10 MEQ ER tablet; Take 2 tablets daily for 5 days, then take 1 tablet daily. Do not crush or chew. Assessment & Plan (03/04/2025 9:07 AM EDT): [...] due after 08/30/2025 -eye care facilitated by [facility] -dental home is [facility] -health care proxy given and filed 07/28/24 Assessment & Plan (08/30/2024 9:57 AM EST): -next physical exam due after 08/30/2025 -eye care facilitated by [facility] -dental home is [facility] dental -health care proxy given and filed 07/28/24 Assessment & Plan (07/28/2024 9:53 AM EDT): -next physical exam due after 08/20/2024 -eye care facilitated by [facility] -dental home is [facility] dental -health care proxy given and filed 07/28/24 Assessment & Plan (08/20/2023 12:11 PM EST): -next physical exam due after 08/20/2024 -eye care facilitated by [facility] -dental home is [facility] dental Assessment & Plan (05/19/2023 9:44 AM EDT): -next physical exam due will see Pt back in 2 months. -eye care facilitated by -dental home is Vitamin D deficiency 05/19/2023 Overview (03/04/2025): Lab Results Component Value Date [id number] 33.0 05/19/2023 Hx of syphilis 05/19/2023 Overview [...] but insurance would not cover. Pt saw [facility] audiology 11/25/2019 Assessment & Plan (04/05/2024 8:37 AM EDT): Uses hearing aids Assessment & Plan (08/20/2023 12:11 PM EST): Uses hearing aids Assessment & Plan (05/19/2023 11:06 AM EDT): Uses hearing aids Anxiety 06/04/2012 Varicose veins of left lower extremity 2 Hypertension 04/02/2012 Overview (05/11/2025): -Blood pressure is controlled 05/11/25. Pt does not want to change medications. It has taken a decade to get a regimin that he agrees to take daily. -Continue lifestyle modifications -Continue current medications -Continue hydrochlorothiazide increased to 25 mg daily 08/30/25 -Continue amlodipine 5 mg daily 08/30/24 -Stop potassium 10 meq 03/04/25 -Started potassium again 04/06/25 Assessment & Plan (05/11/2025 10:01 AM EDT): -Blood pressure is controlled 05/11/25. Pt does not want to change medications. It has taken a decade to get a regimin that he agrees to take daily. -Continue lifestyle modifications -Continue current medications -Continue hydrochlorothiazide increased to 25 mg daily 08/30/25 -Continue amlodipine 5 mg daily 08/30/24 -Stop potassium 10 meq 03/04/25 -Started potassium again 04/06/25 Orders: amLODIPine (Norvasc) 5 MG tablet; TAKE 1 TABLET BY MOUTH EVERY MORNING hydroCHLOROthiazide (HYDRODiuril) 25 MG tablet; TAKE 1 TABLET BY MOUTH EVERY MORNING-angolan, dose increased 08/30/24 Assessment & Plan (03/04/2025 9:06 AM EDT): [...] labs December 2024, improved Assessment & Plan (05/11/2025 10:01 AM EDT): Lab Results Component Value Date CHOL 185 01/03/2025 CHOL 296 (H) 10/18/2024 TRIG 136 01/03/2025 TRIG 288 (H) 10/18/2024 HDL 43 01/03/2025 HDL 42 10/18/2024 LDLCHOLCAL 115 (H) 01/03/2025 LDLCHOLCAL 197 (H) 10/18/2024 -continue lifestyle modifications -pt self discontinued multiple meds, will try again atorvastatin 20mg at bedtime 11/15/24 - Ordered labs December 2024, improved Orders: atorvastatin (Lipitor) 20 MG tablet; Take 1 tablet (20 mg) by mouth Once per day. Assessment & Plan (03/04/2025 9:07 AM EDT): [...] Encounters Date Type Department Care Team Description 05/11/2025 9:30 AM EDT Office Visit [facility] MED[facility] [address] [place], [place] [phone] Michelle Carcamo MD Primary hypertension (Primary Dx); Hypokalemia; Hypercholesterolemia 05/11/2025 Travel 05/10/2025 Telephone [facility] [address] [place] [address] Michelle Carcamo MD Chart prep 04/06/2025 Refill [facility] [address] [place] [address] Michelle Carcamo MD Hypokalemia from Last 3 Months Immunizations Immunization Administration [...] Date Recorded Patient Health Questionnaire-9 Score 0 05/11/2025 Patient Health Questionnaire-9 Score 0 05/11/2025 Last PHQ-9: Questionnaire Data Not on file 0 05/11/2025 Housing Stability Answer Date Recorded What is your housing situation today? I have rufus salomon 05/11/[address] you li ve. Do you have problems with any of the following? None of the above 05/11/2025 Food Insecurity Answer Date Recorded Within the [...] shut off services in your home? No 05/11/2025 Depression Answer Date Recorded Patient Health Questionnaire-2 Score 0 05/11/2025 Internet Access Answer Date Recorded Internet Access Q1 No 05/11/2025 Internet Access Q2 I do not want or need it 03/2025 Sex and Gender Information Value Date Recorded Sex Assigned at Male 08/05/2022 10:20 AM EDT Legal Sex Male 10:20 AM EDT Gender Identity Male 08/05/2022 10:20 AM EDT Sexual Orientation Straight 08/05/2022 10 :20 AM EDT Last Filed Vital Signs Vital Sign Reading Time Taken Comments Blood Pressure 138/88 05/11/2025 9:36 AM EDT Pulse 71 05/11/2025 9:12 AM EDT Temperature 37.2 C (98.9 F) 05/11/2025 9:12 AM EDT Respiratory Rate 20 05/11/2025 9:12 AM EDT Oxygen Saturation 96% 05/11/2025 9:12 AM EDT Inhaled Oxygen Concentration - - Weight 92.4 kg (203 lb 9.6 oz) 05/11/2025 9:12 A M EDT Height 167.6 cm (5' 6 ) 03/04/2025 8:41 AM EDT Body Mass Index 32.86 03/04/2025 8:41 AM EDT Plan of Treatment Upcoming Encounters Date Type Department Care Team (Late st Contact Info) Description 08/29/2025 9:15 AM EST Office Visit [facility] [address] [place], [place] [phone] Michelle Carcamo MD [address] [place], [place] [phone] Health Maintenance Due Date Last Done Comments COVID-19 Vaccine ( season) 2025 12/05/2021, 12/14/2020, 11/16/2020 Alcohol/Substance Use Screening 05/11/2026 05/11/2025 Depression Screening 05/11/2026 05/11/2025, 05/11/20 25 SDOH Screening 05/11/2026 05/11/2025 Tobacco Screening 05/11/2026 05/11/2025 Lipid Panel 01/03/2030 01/03/2025, 10/06, 04/05/2024, Additional history exists DTaP/Tdap/Td Vaccines (3 - Td or Tdap) 05/19/2033 05/19/2023, 04/27/2012, 12/05/2003 Pneumococcal Vaccine: 50+ Years Completed 10/28/2018, 10/02/2017, 04/27/2012, Additional history exists RSV Patients and Patients Aged 60 years or older Completed 04/29/2024 Zoster Vaccines Completed 04/29/2024, 06/07, 10/21/2012 Influenza Vaccine Completed 06/15/2025, , 08/20/2023, Additional history exists HIB Vaccines Aged Out [...] Procedure Name Priority Date/Time Associated Diagnosis Comments BASIC METABOLIC PANEL Routine 05/03/2025 11:57 AM EDT Hypokalemia BASIC METABOLIC PANEL Routine 04/06/2025 11:30 AM EDT Hypokalemia LIPID PANEL, STANDARD Routine 01/03/2025 11:30 AM EDT Hypercholesterolemi a from Last 3 Months or Most Recently Relevant to Health Maintenance Results * (ABNORMAL) Basic Metabolic Panel (05/03/2025 11:57 AM EDT) Only the most recent of2 resultswithin the time period is included. Sodium 143 135 - 145 mmol/L [facility] Potassium 3.5 3.3 - 5.1 mmol/L [facility] Chloride 107 96 - 108 mmol/L [facility] Carbon Dioxide 29 22 - 29 mmol/L [facility] Anion Gap 11(L) 12 - 20 [facility] Urea Nitrogen (BUN) 12 9 - 16 mg/dL [facility] Creatinine, Serum 0.80 0.5 - 1.4 mg/dL [facility] Estimated Glomerular Filt Rate >60 [facility] Comment:Chronic Kidney Disea se: Estimated GFR < 60 mL/min/1.78m5Maxyqk Kidney Disease: Estimated GFR < 15 mL/min/1.73m2 Glucose 101 60 - 115 mg/dL [facility] Calcium 9.2 8.4 - 10.2 mg/dL [facility] Blood Venous blood specimen / Unknown 05/03/2025 11:57 AM EDT 05/03/2025 1:01 PM EDT Michelle Carcamo MD LAB BLOOD ORDERABLES Final Result [facility] [address] [place] [address] [phone] * (ABNORMAL) Lipid Panel, Standard (01/03/2025 11:30 AM EDT) Triglycerides 136 <150 mg/dL [facility] Comment:Desirable Triglyceri de: less than 150 mg/dLBorderline High Triglyceride 150-199 mg/dLHigh Triglyceride: 200-499 mg/dLVery High Triglyceride: greater than or equal to 5OO mg/dL Cholesterol 185 <200 mg/dL [facility] Comment:Desirable Cholestero l: less than 200 mg/dLBorderline High Cholesterol: 200-239 mg/dLHigh Cholesterol: greater than 239 mg/dL LDL Cholesterol Calculated 115(H) <100 mg/dL [facility] Comment:Desirable LDL: less than 100 mg/dLNear Optimal/Above Optimal LDL: 110- 129 mg/dLBorderline High LDL: 130-159 mg/dLHigh LDL: 160-189 mg/dLVery High LDL: greater than or equal to 190 mg/dL HDL Cholesterol 43 >40 mg/dL [facility] Comment:Desirable HDL: great er than 40 mg/dL Note: This HDL assay may give artificially low results in patients with liver disease. Blood Venous blood specimen / Unknown 01/03/2025 11:30 AM EDT 01/03/2025 12:30 PM EDT Michelle Carcamo MD LAB BLOOD ORDERABLES Final Result [facility] [address] [place] [address] [phone] from Last 3 Months or Most Recently Relevant to Health Maintenance Insurance MEDICARE [facility] Advance Directives Documents on File Type Date Recorded Patient Crisis Clinician Expl anation Advance Directives and Living Will 07/29/2024 12:34 PM Health Care Proxy Advance Directives and Living Will 04/05/2024 Health Care Proxy 04/05/24 Care Teams Horse Racetrack Manager Relationship Specialty Start Date End Date Michelle Carcamo MD [address] [place] [id number] PCP - General Family Medicine 10/06/18
--- OUTSIDE RECORDS SUMMARY | 2025-06-21 16:17 | XMS_ITS | Encounter Summary ---
Author Organization [employer] Address [address] [facility] [address] [address] [place] [address] Care Team Providers Care Wood Engraver Name Role Phone Michelle Carcamo MD Primary Care Provider +1- [phone] Reason for Visit * Reason Comments Med Refill Encounter Details Date Type Department Care Team (Late st Contact Info) Description 04/26/2024 Refill [facility] [address] [place] [address] Regla Cabrera MD [address] [place] [address] Social History Tobacco Use Types Packs/Day Years [...] Description 08/29/2025 9:15 AM EST Office Visit [facility] [address] [place] [address] Michelle Carcamo MD [address] [place] [address] documented as of this encounter Visit Diagnoses Not on filedocumented in this encounter Additional Health Concerns Assessment Noted Time PHQ-9 Depression Total Score: 0 05/19/20 23 9:26 AM EDT documented as of this encounter Care Teams Wood Engraver Relationship Specialty Start Date End Date Michelle Carcamo MD [address] [place] [address] PCP - General Family Medicine 10/06/18 documented as of this encounter
== END 2025-06-21 12:11 | disposition home or self-care (01) ==
LOC: HO.HAP 12:10
PROVIDERS: Visit Provider Family Medicine
DX: Z13.89 Encounter for screening for other disorder (principal)

== ENCOUNTER 2025-06-23 11:20 | Outpatient (REF) | payer SELFPAY ==
--- OUTSIDE RECORDS SUMMARY | 2025-06-23 13:36 | XMS_ITS | Encounter Summary ---
Author Organization [employer] Address [address] [facility] [address] [facility] [address] [place] [address] Care Team Providers Care Paper Box Maker Name Role Phone Michelle Carcamo MD Primary Care Provider +1- [phone] Encounter Details Date Type Department Care Team ([facility] st Contact Info) Description 04/05/2024 Orders Only [facility] [address] [place], [place] [phone] Inga Astudillo MD [address] [place] [address] Primary hypertension Social History Tobacco Use Types [...] Description 08/29/2025 9:15 AM EST Office Visit [facility] [address] [place] [address] Michelle Carcamo MD [address] [place] [address] documented as of this encounter Visit Diagnoses Diagnosis Primary hypertension Unspecified essential hypertension documented in this encounter Additional Health Concerns Assessment Noted Time PHQ-9 Depression Total Score: 0 05/19/20 23 9:26 AM EDT documented as of this encounter Care Teams Paper Box Maker Relationship Specialty Start Date End Date Michelle Carcamo MD [address] [place] [address] PCP - General Family Medicine 10/06/18 documented as of this encounter
--- OUTSIDE RECORDS SUMMARY | 2025-06-23 13:36 | XMS_ITS | Encounter Summary ---
Author Organization [employer] Address [address] [facility] 7t [place] [address] Care Team Providers Care Underwriting Clerk Name Role Phone Michelle Carcamo MD Primary Care Provider +1- [phone] Encounter Details Date Type Department Care Team (Latest Contact Info) Description 03/15/2021 Abstract [facility] Dental, Provider, DDS Social History [...] 08/29/2025 9:15 AM EST Office Visit [facility] [address] [place] [address] Michelle Carcamo MD [address] [place] [address] documented as of this encounter Visit Diagnoses Not on filedocumented in this encounter Care Teams Underwriting Clerk Relationship Specialty Start Date End Date Michelle Carcamo MD [address] [place] [address] [phone] PCP - General Family Medicine 10/06/18 documented as of this encounter
--- OUTSIDE RECORDS SUMMARY | 2025-06-23 13:36 | XMS_ITS | Encounter Summary ---
Author Organization [employer] Address [address] [facility] [address]t [place] [address] Care Team Providers Care Customs Import Specialist Name Role Phone Michelle Carcamo MD Primary Care Provider +1- [phone] Reason for Visit * Reason Comments Med Change Request Encounter Details Date Type Department Care Team ([facility] st Contact Info) Description 08/19/2024 Refill [facility] MEDICINE [address] [place] [address] Michelle Carcamo MD [address] [place] [address] Hypokalemia Social History Tobacco Use Types Packs/Day [...] Description 08/29/2025 9:15 AM EST Office Visit [facility] MEDICINE [address] [place] [phone] Michelle Carcamo MD [address] [place] [address] documented as of this encounter Visit Diagnoses Diagnosis Hypokalemia Hypopotassemia documented in this encounter Additional Health Concerns Assessment Noted Time PHQ-9 Depression Total Score: 0 07/28/20 24 10:17 AM EDT documented as of this encounter Care Teams Customs Import Specialist Relationship Specialty Start Date End Date Michelle Carcamo MD [address] [place] [address] PCP - General Family Medicine 10/06/18 documented as of this encounter
--- OUTSIDE RECORDS SUMMARY | 2025-06-23 13:36 | XMS_ITS | Encounter Summary ---
Author Organization [employer] Address [address] [facility] [address] [place] [address] Care Team Providers Care Data Review Specialist Name Role Phone Michelle Carcamo MD Primary Care Provider +1- [phone] Reason for Visit * Reason Comments Med Refill Encounter Details Date Type Department Care Team (Late st Contact Info) Description 04/26/2024 Refill [facility] [address] [place] [address] Regla Cabrera MD [address] [place] [address] Social History Tobacco Use Types Packs/Day Years [...] Description 08/29/2025 9:15 AM EST Office Visit [facility] [address] [place] [address] Michelle Carcamo MD [address] [place] [phone] documented as of this encounter Visit Diagnoses Not on filedocumented in this encounter Additional Health Concerns Assessment Noted Time PHQ-9 Depression Total Score: 0 05/19/20 23 9:26 AM EDT documented as of this encounter Care Teams Data Review Specialist Relationship Specialty Start Date End Date Michelle Carcamo MD [address] [place] [phone] PCP - General Family Medicine 10/06/18 documented as of this encounter
--- OUTSIDE RECORDS SUMMARY | 2025-06-23 13:36 | XMS_ITS | Encounter Summary ---
Author Organization [employer] Address [address] [facility] [facility] [address] [place] [address] Care Team Providers Care Traffic Coordinator Name Role Phone Michelle Carcamo MD Primary Care Provider +1- [phone] Reason for Visit * Reason Comments Med Refill Encounter Details Date Type Department Care Team (Late st Contact Info) Description 06/14/2024 Refill [facility] [address] [place], [place] [phone] Venita Sparrow, ANP [address] [place] [address] Primary hypertension Social History Tobacco Use Types [...] Description 08/29/2025 9:15 AM EST Office Visit [facility] [address] [place] [address] Michelle Carcamo MD [address] [place] [address] documented as of this encounter Visit Diagnoses Diagnosis Primary hypertension Unspecified essential hypertension documented in this encounter Additional Health Concerns Assessment Noted Time PHQ-9 Depression Total Score: 0 05/19/20 23 9:26 AM EDT documented as of this encounter Care Teams Traffic Coordinator Relationship Specialty Start Date End Date Michelle Carcamo MD [address] [place] [id number] PCP - General Family Medicine 10/06/18 documented as of this encounter
--- OUTSIDE RECORDS SUMMARY | 2025-06-23 13:36 | XMS_ITS | Clinical Summary ---
Author Organization [employer] Address [address] [place] [address] Care Team Providers Care Chip Separator Name Role Phone Michelle Carcamo MD Primary Care Provider +1- [phone] Allergies Active Allergy Reactions Criticality Noted Date [...] due after 08/30/2025 -eye care facilitated by [facility] -dental home is [facility] dental -health care proxy given and filed 07/28/24 Assessment & Plan (08/30/2024 9:57 AM EST): -next physical exam due after 08/30/2025 -eye care facilitated by [facility] -dental home is [facility] dental -health care proxy given and filed 07/28/24 Assessment & Plan (07/28/2024 9:53 AM EDT): -next physical exam due after 08/20/2024 -eye care facilitated by [facility] -dental home is [facility] dental -health care proxy given and filed 07/28/24 Assessment & Plan (08/20/2023 12:11 PM EST): -next physical exam due after 08/20/2024 -eye care facilitated by [facility] -dental home is [facility] dental Assessment & Plan (05/19/2023 9:44 AM EDT): -next physical exam due will see Pt back in 2 months. -eye care facilitated by -dental home is Vitamin D deficiency 05/19/2023 Overview (03/04/2025): Lab Results Component Value Date [id number] 33.0 05/19/2023 Hx of syphilis 05/19/2023 Overview [...] but insurance would not cover. Pt saw [facility] audiology 11/25/2019 Assessment & Plan (04/05/2024 [...] tablet; TAKE 1 TABLET BY MOUTH EVERY MORNING-guatemalan, dose increased 08/30/24 Assessment & Plan (03/04/2025 [...] Description 05/11/2025 9:30 AM EDT Office Visit [facility] [address] [place], [place] [phone] Michelle Carcamo MD Primary hypertension (Primary Dx); Hypokalemia; Hypercholesterolemia 05/11/2025 Travel 05/10/2025 Telephone [facility] [address] [place] [address] Michelle Carcamo MD Chart prep 04/06/2025 Refill [facility] [address] [place] [address] Michelle Carcamo MD Hypokalemia from [...] Description 08/29/2025 9:15 AM EST Office Visit [facility] [address] [place], [place] [phone] Michelle Carcamo MD [address] [place], [place] [phone] Health Maintenance Due Date Last Done Comments [...] included. Sodium 143 135 - 145 mmol/L [facility] Potassium 3.5 3.3 - 5.1 mmol/L [facility] Chloride 107 96 - 108 mmol/L [facility] Carbon Dioxide 29 22 - 29 mmol/L [facility] Anion Gap 11(L) 12 - 20 [facility] Urea Nitrogen (BUN) 12 9 - 16 mg/dL [facility] Creatinine, Serum 0.80 0.5 - 1.4 mg/dL [facility] Estimated Glomerular Filt Rate >60 [facility] Comment:Chronic Kidney Disea se: Estimated GFR < 60 mL/min/1.66y7Nsgeep Kidney Disease: Estimated GFR < 15 mL/min/1.73m2 Glucose 101 60 - 115 mg/dL [facility] Calcium 9.2 8.4 - 10.2 mg/dL [facility] Blood Venous blood specimen / Unknown 05/03/2025 11:57 AM EDT 05/03/2025 1:01 PM EDT Michelle Carcamo MD LAB BLOOD ORDERABLES Final Result [facility] [address] [place] [address] [phone] * (ABNORMAL) Lipid Panel, Standard (01/03/2025 11:30 AM EDT) Triglycerides 136 <150 mg/dL [facility] Comment:Desirable Triglyceri de: less than 150 mg/dLBorderline High Triglyceride 150-199 mg/dLHigh Triglyceride: 200-499 mg/dLVery High Triglyceride: greater than or equal to 5OO mg/dL Cholesterol 185 <200 mg/dL [facility] Comment:Desirable Cholestero l: less than 200 mg/dLBorderline High Cholesterol: 200-239 mg/dLHigh Cholesterol: greater than 239 mg/dL LDL Cholesterol Calculated 115(H) <100 mg/dL [facility] Comment:Desirable LDL: less than 100 mg/dLNear Optimal/Above Optimal LDL: 110- 129 mg/dLBorderline High LDL: 130-159 mg/dLHigh LDL: 160-189 mg/dLVery High LDL: greater than or equal to 190 mg/dL HDL Cholesterol 43 >40 mg/dL [facility] Comment:Desirable HDL: great er than 40 mg/dL Note: This HDL assay may give artificially low results in patients with liver disease. Blood Venous blood specimen / Unknown 01/03/2025 11:30 AM EDT 01/03/2025 12:30 PM EDT Michelle Carcamo MD LAB BLOOD ORDERABLES Final Result [facility] [address] [place] [address] [phone] from Last 3 Months or Most Recently Relevant to Health Maintenance Insurance MEDICARE [facility] F[facility] Advance Directives Documents on File Type Date Recorded Patient Cashier And Salesperson Expl anation Advance Directives and Living Will 07/29/2024 12:34 PM Health Care Proxy Advance Directives and Living Will 04/05/2024 Health Care Proxy 04/05/24 Care Teams Chip Separator Relationship Specialty Start Date End Date Michelle Carcamo MD [address] [place] [phone] PCP - General Family Medicine 10/06/18
--- OUTSIDE RECORDS SUMMARY | 2025-06-23 13:37 | XMS_ITS | Encounter Summary ---
Author Organization [employer] Address [address] [place] [address] Care Team Providers Care Printed Circuit Board Panels Trimmer Name Role Phone Michelle Carcamo MD Primary Care Provider +1- [phone] Encounter Details Date Type Department Care Team ([facility] st Contact Info) Description 07/28/2024 Orders Only [facility] [address] [place] [address] Michelle Carcamo MD [address] [place] [address] Hypokalemia Social History Tobacco Use Types Packs/Day [...] Description 08/29/2025 9:15 AM EST Office Visit [facility] [address] [place] [address] Michelle Carcamo MD [address] [place] [address] documented as of this encounter Visit Diagnoses Diagnosis Hypokalemia Hypopotassemia documented in this encounter Additional Health Concerns Assessment Noted Time PHQ-9 Depression Total Score: 0 07/28/20 24 10:17 AM EDT documented as of this encounter Care Teams Printed Circuit Board Panels Trimmer Relationship Specialty Start Date End Date Michelle Carcamo MD [address] [place] [address] PCP - General Family Medicine 10/06/18 documented as of this encounter
== END 2025-06-23 11:21 | disposition home or self-care (01) ==
LOC: HO.HAP 11:20
PROVIDERS: Visit Provider Pediatrics
DX: Z46.1 Encounter for fitting and adjustment of hearing aid (principal)
CPT/HCPCS: 92593

== ENCOUNTER 2025-07-08 15:10 | Emergency (ER) | payer MEDICARE, MEDICAID, SELFPAY ==
--- NOTE | ~2025-07-08 | CT_ITS ---
CLINICAL HISTORY: fall with head strike CT head without contrast Comparison: None Findings: Involutional change and nonspecific white matter hypodensity. No intracranial mass, midline shift, hydrocephalus, or acute hemorrhage. Orbits, paranasal sinuses, and mastoid air cells are unremarkable. Chronic appearing deformity of the nasal bone. No acute fracture. Right frontal scalp laceration. Impression: 1. No intracranial hemorrhage This document has been electronically signed by: Kavita Booker MD on 07/08/2025 17:50:46
--- NOTE | ~2025-07-08 | CT_ITS ---
CLINICAL HISTORY: fall, laceration R eyebrow CT maxillofacial without contrast Comparison: None provided Findings: Chronic appearing deformity of the nasal bone. No acute displaced fracture. Temporomandibular joints are intact. There is a scalp laceration in the right frontal region. Very mild mucosal thickening within the paranasal sinuses. Unremarkable orbital contents. Visualized intracranial contents are within normal limits. No foreign bodies. IMPRESSION: No acute displaced facial bone fracture. This document has been electronically signed by: Kavita Booker MD on 07/08/2025 18:00:34
--- NOTE | 2025-07-08 15:21 | ED.GENADULT ---
HPI - General Adult General Chief complaint: Fall Stated complaint: above right eye injury Time Seen by Provider: 07/08/25 19:25 Source: patient, family () and swimming pool maintenance supervisor (mohawk) Mode of arrival: ambulatory Limitations: language barrier (mohawk) History of Present Illness ED Provider: JOYCE PÉREZ PA-C HPI narrative: 80-year-old Belgian-speaking male with pmhx significant for HTN presents to the ED today for evaluation s/p syncopal episode this morning. Patient states his left the room to go into the kitchen. He went to stand up from the couch and felt dizzy and fell to the ground. Unclear if he lost consciousness. His heard him call out to her. She entered the room and he was in the middle of standing back up. They noted a laceration to his right eye brow, states I was bleeding everywhere . Admits to hitting his head on the hardwood floor. No thinners. No hx similar. Denies any recent changes to his BP meds. States he feels well at present, no complaints. On my arrival into patient's room, he was standing and ambulating around the room with steady gait. No further episodes of dizziness/syncope since. Denies chest pain, palpitations, SOB, N/V, vision changes, headache. admits that their apartment was fairly warm this morning. Related Data Home Medications ?Medication ?Instructions ?Recorded ?Confirmed fluticasone propionate 50 1 spray intranasal DAILY 10/10/20 10/10/20 mcg/actuation nasal spray,suspension hydrochlorothiazide 25 mg tablet 25 mg PO DAILY 10/10/20 10/10/20 lisinopril 10 mg tablet 10 mg PO DAILY 10/10/20 10/10/20 rosuvastatin 5 mg tablet 5 mg PO DAILY 10/10/20 10/10/20 amlodipine 2.5 mg tablet 2.5 mg PO DAILY 04/25/22 cholecalciferol (vitamin D3) 25 25 mcg PO DAILY 04/25/22 mcg (1,000 unit) capsule loratadine 10 mg tablet 10 mg PO DAILY 04/25/22 Previous Rx's ?Medication ?Instructions ?Recorded peg 3350-electrolytes 236 240 ml PO Q10M 1 day #4,000 mL 04/25/22 gram-22.74 gram-6.74 gram-5.86 gram solution (Golytely) Allergies Allergy/AdvReac Type Severity Reaction Status Date / Time No Known Allergies (No Known Allergy Verified 07/08/25 15:23 Allergies*) Review of Systems Review of Systems: Yes all other systems are reviewed and are negative [facility] Past Medical History Attestation statement: The following information was validated with the patient. Source: old records reviewed and nursing notes reviewed Medical History Perirectal cyst Balanitis Asthma [place] (hard of hearing) Elevated cholesterol HTN (hypertension) Surgical History H/O colonoscopy Social History Social History Alcohol intake: never Smoked in Last 30 Days: No Use of substances other than those prescribed or required for medical reasons: No Advance Directives: No Advance Directives Information Provided: Yes Current occupational status: retired Current occupation: right handed. Physical Exam ED Vital Signs: Vital Signs - 24 hr 07/08/25 15:22 07/08/25 19:15 07/08/25 19:52 Temperature 98.0 F 97.8 F Pulse Rate 75 75 62 Respiratory Rate 16 18 Blood Pressure 151/77 H 183/82 H 169/76 H Pulse Oximetry 96 95 Oxygen Delivery Method Room Air Room Air 07/08/25 19:52 07/08/25 19:53 07/08/25 21:57 Temperature 98.5 F Pulse Rate 65 65 58 Respiratory Rate 16 Blood Pressure 173/78 H 169/76 H 156/74 H Pulse Oximetry 98 Oxygen Delivery Method Room Air 07/08/25 22:08 Temperature 98.5 F Pulse Rate 58 Respiratory Rate 16 Blood Pressure 156/74 H Pulse Oximetry 98 Oxygen Delivery Method Room Air BMI result Body Mass Index 29.1 hypertensive, vitals are otherwise wnl General: Well appearing, in no acute distress. Skin: +1cm puncture wound noted to medial aspect of right eyebrow. no active bleeding. no involvement of deeper structures. no fb. Head: Normocephalic, atraumatic. No palpable hematoma, no palpable skull fracture. No no sign, raccoon eyes. Neck: No midline cervical spinous tenderness. Full ROM intact. EENT: Hearing is intact b/l. Conjunctiva clear. Sclera is anicteric. PERRLA. EOM intact without entrapment. Moist mucous membranes.? Cardiac: Chest wall symmetric. RRR Lungs: Normal respiratory effort without accessory muscle use. CTA bilaterally Back: No midline spinous or paraspinal tenderness. No step off deformity. Ext: Upper and lower extremities atraumatic, without tenderness, deformity, swelling or erythema. Full ROM throughout Neuro: AOx3. Normal speech. NIH 0. Ambulating with steady gait. Psych: Appropriate mood and affect. Responds appropriately to questions. Course Course Course Narrative: This is a rapid medical exam performed by Marsha Stroud NP: Additional HPI, ROS, PE not included below will be deferred to primary provider. Patient is an 80y/o Belgian speaking M presenting to the ED stating that he was watching TV this morning, stood up and felt a weird dizziness, then fell hitting face on the wood floor. Has a small laceration to right eyebrow. Not anticoagulated. Started calling for right after the fall. Plan: CT head and facial bones Reevaluation(s) Reevaluation #1: CBC without leukocytosis or left shift. H&H stable. Chemistry without acute electrolyte abnormality requiring intervention. No BOO. Liver function at baseline. Troponin WNL. Urine without infection. EKG showing sinus bradycardia, rate of 59 beats per minute, QT 442, no acute ischemic changes or ST elevations. CT head without acute skull fracture or intracranial bleed. CT facial bones without fracture. Orthostatic vitals negative. > patient noted to have a 1 cm puncture wound to medial aspect of right eyebrow. This was thoroughly cleansed with saline and iodine. After obtaining consent from patient, the laceration was repaired with 2 sutures. Please see procedure note. Patient tolerated well. Tetanus updated today. Advised to return to the ED in 3-5 days for suture removal. > patient feels well. He has been in our department for over 5 hours at this point. Ambulating with steady gait assisted by cane. States he would like to go home and is anxious for discharge. His workup is reassuring. His states that it was very hot and their apartment when patient stood up and became dizzy. this may have been situational. I advised patient to increase his oral hydration and use caution when going from sitting to standing. He verbalizes understanding and will be following up with his providers outpatient. Medications Administered Discontinued Medications Generic Name Dose Route Start Last Admin Trade Name Michael PRN Reason Stop Dose Admin Diphtheria/Tetanus/Acell Pertussis 0.5 ml 07/08/25 20:26 07/08/25 21:26 Diphth,Pertus(Acell),Tet Adult 0.5 Ml Syringe IM 07/08/25 20:27 0.5 ml .ONCE ONE Administration Lidocaine HCl 5 ml 07/08/25 20:19 07/08/25 21:32 Lidocaine Hcl 1 % Mpf 5 Ml Vial INFILTRATI 07/08/25 20:20 5 ml ONCE ONE Administration Procedures Laceration Laceration 1: Site: face Side (If applicable): right Size (cm): 1 Description: linear Depth: simple, single layer Local Anesthetic: lidocaine 1% Amount of anesthesia used (mL): 5 Pre-repair: wound explored, irrigated extensively and deep structures intact Skin layer closed with: nylon Size (cm): 5-0 Number of sutures: 2 Technique: simple, interrupted Medical Decision Making Medical Decision Making [facility] Narrative: 80-year-old Belgian-speaking male with pmhx significant for HTN presents to the ED today for evaluation s/p syncopal episode this morning. Differential diagnoses includes: viral syndrome, anemia, electrolyte abnormality, hypoglycemia, orthostatic hypotension, dehydration, medication side effect, BPPV vs labrynthitis, laceration, abrasion No red flag features for central vertigo to include gradual onset, vertical/bidirectional or nonfatigable nystagmus, focal neurologic findings on exam (including inability to ambulate). Presentation not consistent with an acute SECURITY CLERK infection, vertebral basilar artery insufficiency, cerebellar hemorrhage or infarction,?intracranial mass or bleed, temporal lobe epilepsy,?MS, trauma, complex migraine headache. I have also considered ACS, arrhythmia, pneumonia, UTI. Plan: labs, ekg, viral swabs, CXR, UA, trial of IVF +meclizine, supportive care, serial reassessment Differential Diagnosis Differential Diagnoses: The differential diagnosis associated with the presentation includes as above. Admission/Observation Not indicated Lab Data [facility] Lab Attestation statement: I reviewed the patient's lab results. As above 07/08/25 19:01 07/08/25 19:01 Labs: Lab Results 07/08/25 07/08/25 Range/Units 19:01 20:12 WBC 10.4 (4.8-10.8) X10*3/uL RBC 4.39 L (4.60-5.80) X10*6/uL Hgb 14.2 (14.0-18.0) g/dl Hct 40.2 L (42.0-52.0) % MCV 91.6 (80.0-98.0) fL MCH 32.3 (27.0-33.0) pg MCHC 35.3 (31.0-36.0) g/dl RDW 13.1 (11.0-16.0) % Plt Count 265 (160-400) X10*3/uL MPV 9.4 (9.4-12.4) fL Immature Gran % (Auto) 0.3 (0.0-0.4) % Neut % (Auto) 67.9 (45-73) % Lymph % (Auto) 24.0 (20-40) % [place] % (Auto) 6.1 (2-11) % Eos % (Auto) 1.2 (0-4) % Baso % (Auto) 0.5 (0-2) % Lymph # (Auto) 2.5 (1.2-4.9) X10*3/uL [place] # (Auto) 0.6 (0.1-1.2) X10*3/uL Eos # (Auto) 0.1 (0.0-0.4) X10*3/uL Baso # (Auto) 0.1 (0.0-0.2) X10*3/uL Abs Immat Gran (auto) 0.03 (0.00-0.03) X10*3/uL Absolute Neuts (auto) 7.1 (2.0-8.3) x10*3/uL Absolute Nucleated RBC 0.000 (0.0-0.012) X10*3/uL Nucleated RBC % (auto) 0.0 (0.0-0.2) /100WBC PT 11.8 (10.9-12.4) SEC INR 1.0 (0.9-1.1) Sodium 142 (135-145) mmol/L Potassium 3.7 (3.3-5.1) mmol/L Chloride 106 (96-108) mmol/L Carbon Dioxide 26 (22-29) mmol/L Anion Gap 14 (12-20) BUN 11 (9-16) mg/dL Creatinine 0.78 (0.5-1.4) mg/dL Estim Creat Clear Calc 70.9 Estimated GFR > 60 Random Glucose 97 (60-115) mg/dL Calcium 9.3 (8.4-10.2) mg/dL Magnesium 2.3 (1.6-2.6) mg/dL Total Bilirubin 0.9 (0.0-1.0) mg/dL AST 31 (5-37) U/L ALT 24 (0-40) U/L Alkaline Phosphatase 98 (39-117) U/L Troponin I High Sens 11.6 (<3.5-35.0) ng/L Total Protein 7.1 (6.5-8.0) g/dL Albumin 4.6 (3.5-5.0) g/dL Urine Color Yellow Urine Appearance Clear Urine pH 7.0 (5.0-9.0) Ur Specific [place] 1.010 (1.005-1.025) Urine Protein Negative (Neg-Trace) mg/dL Urine Glucose (UA) Negative (Negative) mg/dL Urine Ketones Negative (Negative) mg/dL Urine Blood Negative (Negative) Urine Nitrite Negative (Negative) Ur Leukocyte Esterase Negative (Negative) Urine RBC 0-2 (0-2) /HPF Urine WBC 0-5 (0-5) /HPF Ur Squamous Epith Cells 0-2 (0-2) /HPF Urine Bacteria None Seen (None Seen) Hyaline Casts 0-2 (0-2) /LPF Independent Interpretation I performed an independent interpretation of an: EKG and CT Scan Interpretation: CT head/brain without intracranial bleed, no skull fracture CT facial bones without fracture UA showing sinus bradycardia, rate of 59 beats per minute, QT 442, QTC, no acute ischemic changes or ST elevations Radiology Impression Discussion of test interpretation with radiology: I have reviewed the radiologist's reading. Radiologist Impression: Date of Service: 07/08/25 Procedure(s): CT facial bones wo IV con Accession Number(s): [id number] cc: Physician,Unknown ; Macy Stroud NP~ Report Number: [id number]: Total DLP = 362.00 mGy-cm Reason for Exam: fall, laceration R eyebrow CLINICAL HISTORY: fall, laceration R eyebrow CT maxillofacial without contrast Comparison: None provided Findings: Chronic appearing deformity of the nasal bone. No acute displaced fracture. Temporomandibular joints are intact. There is a scalp laceration in the right frontal region. Very mild mucosal thickening within the paranasal sinuses. Unremarkable orbital contents. Visualized intracranial contents are within normal limits. No foreign bodies. IMPRESSION: No acute displaced facial bone fracture. This document has been electronically signed by: Kavita Booker MD on 07/08/2025 18:00:34 Date of Service: 07/08/25 Procedure(s): CT head/brain wo IV con Accession Number(s): [id number] cc: Physician,Unknown ; Macy Stroud NP~ Report Number: [id number]: Total DLP = 729.00 mGy-cm Reason for Exam: fall with head strike CLINICAL HISTORY: fall with head strike CT head without contrast Comparison: None Findings: Involutional change and nonspecific white matter hypodensity. No intracranial mass, midline shift, hydrocephalus, or acute hemorrhage. Orbits, paranasal sinuses, and mastoid air cells are unremarkable. Chronic appearing deformity of the nasal bone. No acute fracture. Right frontal scalp laceration. Impression: 1. No intracranial hemorrhage This document has been electronically signed by: Kavita Booker MD on 07/08/2025 17:50:46 Independent Historian Clinical information obtained from an independent historian. History obtained from or confirmed by: Spouse External Record Review External record reviewed: Inpatient record Chronic Conditions Patient?s care impacted by: Hypertension Social Determinants Patient?s care significantly limited by Social Determinants of Health including: Other Social Determinant of Health Critical Care Time Critical Care Time Critical Care Time: No Discharge Plan Discharge Clinical Impression: Fall, Eyebrow laceration Patient Disposition: Home, Self-Care Instructions: Laceration (ED), Fall Prevention (ED) Additional Instructions: You were evaluated in the ED today following a fall. Your blood work is reassuring. Your urine does not demonstrate infection. The CT scan of your head and neck do not demonstrate intracranial bleed or fractures. It appears that this episode may have been a result of it being too hot in your apartment. Please make sure that you are staying adequately hydrated. You have a laceration to your right eyebrow that was repaired with 2 sutures today. Your tetanus vaccination was also updated and will be valid for 5-10 years. Please keep the area surrounding the laceration clean and dry. Do not get the area wet for 24 hours. After 24 hours, you may clean the area with a non-scented soap and pat to dry. Please keep the area out of the sunlight for the next 6 months to help prevent scarring.? If you develop redness or swelling at the site of your laceration or note any discharge/ fluid coming from the laceration, please come back to the ER for a wound check. I recommend you take 600mg ibuprofen every 6 hours or tylenol 650mg every 6 hours as needed for pain. If needed, you can alternate these medications so that you take one medication every 3 hours. For example, at noon take ibuprofen, then at 3pm take tylenol, then at 6pm take ibuprofen. Please follow up with your primary care physician in 3-5 days for suture removal. You may also return to the ER or another urgent care facility for this service. Return to the Emergency Department if you experience discharge from your laceration, redness around your laceration, warmth around your laceration, fever, vomiting, numbness, tingling, or any other concerning symptoms. In the case of an emergency call 911. Prescriptions: No Action lisinopril 10 mg Tablet 10 mg PO DAILY hydrochlorothiazide 25 mg Tablet 25 mg PO DAILY fluticasone propionate [Flonase] 50 mcg/actuation [place],Suspension 1 spray INTRANASAL DAILY rosuvastatin 5 mg Tablet 5 mg PO DAILY amlodipine 2.5 mg tablet 2.5 mg PO DAILY cholecalciferol (vitamin D3) 25 mcg (1,000 unit) capsule 25 mcg PO DAILY loratadine 10 mg tablet 10 mg PO DAILY peg 3350-electrolytes [Golytely] 236-22.74-6.74 -5.86 gram recon soln 240 ml PO Q10M 1 Days Qty: 4000 0RF Rx Instructions: until fecal effluent is clear; do not exceed a total volume of 2,000 mL Referrals: Physician,Unknown J [Primary Care Provider, Medical] Interventions: ED Discharge Assessment Last Done: 07/08/25 22:08 Discharge Date/Time: 07/08/25 22:09 Print Language: Belgian
[2025-07-08 15:22] VITALS: BP 151/77; PULSE 75; RESP 16; TEMP 36.7; O2SAT 96; BMI 29.1
--- NOTE | 2025-07-08 18:20 | ECG_ITS ---
Test Reason : DIZZINESS Blood Pressure : */* mmHG Vent. Rate : 59 BPM Atrial Rate : 59 BPM P-R Int : 184 ms QRS Dur : 110 ms QT Int : 442 ms P-R-T Axes : 42 2 49 degrees QTcB Int : 437 ms Sinus bradycardia Minimal voltage criteria for LVH, may be normal variant ( Elvin product ) Borderline ECG When compared with ECG of 29-Nov-2015 13:54, No significant change was found Referred By: Macy Stroud Electronically Signed By: PHILLIP BALLARD
[2025-07-08 19:09] LABS: MANUAL DIFF FLAG NO
[2025-07-08 19:11] LABS: Hematocrit 40.2 % (42.0-52.0); Hemoglobin 14.2 g/dl (14.0-18.0); Imm Gran Abs Auto 0.03 X10*3/uL (0.00-0.03); Imm Gran Pct Auto 0.3 % (0.0-0.4); Lymphocytes Absolute Auto 2.5 X10*3/uL (1.2-4.9); Mean Corpuscular HGB Conc 35.3 g/dl (31.0-36.0); Mean Corpuscular Hemoglobin 32.3 pg (27.0-33.0); Mean Corpuscular Volume 91.6 fL (80.0-98.0); NRBC Abs Auto 0.000 X10*3/uL (0.0-0.012); NRBC Pct Auto 0.0 /100WBC (0.0-0.2); Platelet Count 265 X10*3/uL (160-400); Red Blood Count 4.39 X10*6/uL (4.60-5.80); White Blood Count 10.4 X10*3/uL (4.8-10.8)
[2025-07-08 19:15] VITALS: BP 183/82; PULSE 75; RESP 18; TEMP 36.6; O2SAT 95
[2025-07-08 19:32] LABS: INTERNATIONAL NORM RATIO 1.0 (0.9-1.1); Prothrombin Time 11.8 SEC (10.9-12.4)
[2025-07-08 19:39] LABS: Alanine Aminotransferase 24 U/L (0-40); Albumin Level 4.6 g/dL (3.5-5.0); Alkaline Phosphatase 98 U/L (39-117); Anion Gap 14 (12-20); Aspartate Amino Transferase 31 U/L (5-37); Blood Urea Nitrogen 11 mg/dL (9-16); Calcium 9.3 mg/dL (8.4-10.2); Carbon Dioxide 26 mmol/L (22-29); Chloride 106 mmol/L (96-108); Creatinine Clr Calc Pharmacy 70.9; Estimated Glomerular Filt Rate > 60; Magnesium 2.3 mg/dL (1.6-2.6); Potassium 3.7 mmol/L (3.3-5.1); Sodium 142 mmol/L (135-145); Total Protein 7.1 g/dL (6.5-8.0)
--- OUTSIDE RECORDS SUMMARY | 2025-07-08 19:41 | XMS_ITS | Encounter Summary ---
Author Organization [employer] Address [address] [place] [address] Care Team Providers Care [employer] Name Role Phone Michelle Carcamo MD Primary Care Provider +1- [phone] Encounter Details Date Type Department Care Team ([facility] st Contact Info) Description 04/05/2024 Orders Only [facility] [address] [place], [place] [phone] Inga Astudillo MD [address] [place] [address] Primary hypertension Social History Tobacco Use Types [...] Description 08/29/2025 9:15 AM EST Office Visit [facility] [address] [place] [phone] Michelle Carcamo MD [address] [place] [address] documented as of this encounter Visit Diagnoses Diagnosis Primary hypertension Unspecified essential hypertension documented in this encounter Additional Health Concerns Assessment Noted Time PHQ-9 Depression Total Score: 0 05/19/20 23 9:26 AM EDT documented as of this encounter Care Teams [employer] Relationship Specialty Start Date End Date Michelle Carcamo MD [address] [place] [address] PCP - General Family Medicine 10/06/18 documented as of this encounter
--- OUTSIDE RECORDS SUMMARY | 2025-07-08 19:41 | XMS_ITS | Encounter Summary ---
Author Organization [employer] Address [address]t [place] [address] Care Team Providers Care Fish And Wildlife Technician Name Role Phone Michelle Carcamo MD Primary Care Provider +1- [phone] Reason for Visit * Reason Comments Med Refill Encounter Details Date Type Department Care Team (Late st Contact Info) Description 04/26/2024 Refill [facility] [address] [place] [address] Regla Cabrera MD [address] [place] [address] Social History Tobacco Use Types Packs/Day Years Used Date Smoking Tobacco: Never Passive Smoke Exposure: Never Smokeless Tobacco: Never Alcohol Use Standard Drinks/Week Comments Never 0 (1 standard drink = 0.6 oz pur e alcohol) Depression Answer Date Recorded Patient Health Questionnaire-9 Score 0 05/19/2023 Housing Stability Answer Date Recorded What is your housing situation today? I have rufsu salomon 07/23/[address] you [...] Description 08/29/2025 9:15 AM EST Office Visit [facility] [address] [place] [address] Michelle Carcamo MD [address] [place] [phone] documented as of this encounter Visit Diagnoses Not on filedocumented in this encounter Additional Health Concerns Assessment Noted Time PHQ-9 Depression Total Score: 0 05/19/20 23 9:26 AM EDT documented as of this encounter Care Teams Fish And Wildlife Technician Relationship Specialty Start Date End Date Michelle Carcamo MD [address] [place] [id number] PCP - General Family Medicine 10/06/18 documented as of this encounter
--- OUTSIDE RECORDS SUMMARY | 2025-07-08 19:41 | XMS_ITS | Encounter Summary ---
Author Organization [employer] Address [address] 7[address] [place] [address] Care Team Providers Care Research Environmental Scientist Name Role Phone Michelle Carcamo MD Primary Care Provider +1- [phone] Encounter Details Date Type Department Care Team ([facility] st Contact Info) Description 07/28/2024 Orders Only [facility] [address] [place] [address] Michelle Carcamo MD [address] [place] [address] Hypokalemia Social History Tobacco Use Types Packs/Day [...] to sit still 0 07/28/2024 10:17 AM Leonlea Keyes [place] Becoming easily annoyed or irritable [...] Description 08/29/2025 9:15 AM EST Office Visit [facility] [address] [place] [address] Michelle Carcamo MD [address] [place] [address] documented as of this encounter Visit Diagnoses Diagnosis Hypokalemia Hypopotassemia documented in this encounter Additional Health Concerns Assessment Noted Time PHQ-9 Depression Total Score: 0 07/28/20 24 10:17 AM EDT documented as of this encounter Care Teams Research Environmental Scientist Relationship Specialty Start Date End Date Michelle Carcamo MD [address] [place] [address] PCP - General Family Medicine 10/06/18 documented as of this encounter
--- OUTSIDE RECORDS SUMMARY | 2025-07-08 19:41 | XMS_ITS | Encounter Summary ---
Author Organization [employer] Address [address] [place] [address] Care Team Providers Care Management Internship Name Role Phone Michelle Carcamo MD Primary Care Provider +1- [phone] Reason for Visit * Reason Comments Med Refill Encounter Details Date Type Department Care Team (Late st Contact Info) Description 06/14/2024 Refill [facility] [address] [place], [place] [phone] Venita Sparrow, ANP [address] [place] [address] Primary hypertension Social History Tobacco Use Types [...] Description 08/29/2025 9:15 AM EST Office Visit [facility] [address] [place] [address] Michelle Carcamo MD [address] [place] [phone] documented as of this encounter Visit Diagnoses Diagnosis Primary hypertension Unspecified essential hypertension documented in this encounter Additional Health Concerns Assessment Noted Time PHQ-9 Depression Total Score: 0 05/19/20 23 9:26 AM EDT documented as of this encounter Care Teams Management Internship Relationship Specialty Start Date End Date Michelle Carcamo MD [address] [place] [id number] PCP - General Family Medicine 10/06/18 documented as of this encounter
--- OUTSIDE RECORDS SUMMARY | 2025-07-08 19:41 | XMS_ITS | Encounter Summary ---
Author Organization [employer] Address [address] [facility] 7t [place] [address] Care Team Providers Care Refinery Operator Reforming Unit Name Role Phone Michelle Carcamo MD Primary Care Provider +1- [phone] Encounter Details Date Type Department Care Team (Latest Contact Info) Description 03/15/2021 Abstract [facility] CONVERSIONS Dental, Provider, DDS Social History Tobacco [...] Description 08/29/2025 9:15 AM EST Office Visit [facility] [address] [place] [address] Michelle Carcamo MD [address] [place] [phone] documented as of this encounter Visit Diagnoses Not on filedocumented in this encounter Care Teams Refinery Operator Reforming Unit Relationship Specialty Start Date End Date Michelle Carcamo MD [address] [place] [phone] PCP - General Family Medicine 10/06/18 documented as of this encounter
--- OUTSIDE RECORDS SUMMARY | 2025-07-08 19:41 | XMS_ITS | Clinical Summary ---
Author Organization [employer] Address [address] [facility] 7t [place] [address] Care Team Providers Care Feed Miller Name Role Phone Michelle Carcamo MD Primary Care Provider +1- [phone] Allergies Active Allergy Reactions Criticality Noted Date [...] due after 08/30/2025 -eye care facilitated by [facility] -dental home is [facility] dental -health care proxy given and filed 07/28/24 Assessment & Plan (08/30/2024 9:57 AM EST): -next physical exam due after 08/30/2025 -eye care facilitated by [facility] -dental home is [facility] dental -health care proxy given and filed 07/28/24 Assessment & Plan (07/28/2024 9:53 AM EDT): -next physical exam due after 08/20/2024 -eye care facilitated by [facility] -dental home is [facility] dental -health care proxy given and filed 07/28/24 Assessment & Plan (08/20/2023 12:11 PM EST): -next physical exam due after 08/20/2024 -eye care facilitated by [facility] -dental home is [facility] dental Assessment & Plan (05/19/2023 9:44 AM EDT): -next physical exam due will see Pt back in 2 months. -eye care facilitated by -dental home is Vitamin D deficiency 05/19/2023 Overview (03/04/2025): Lab Results Component Value Date [id number] 33.0 05/19/2023 Hx of syphilis 05/19/2023 Overview [...] but insurance would not cover. Pt saw [facility] audiology 11/25/2019 Assessment & Plan (04/05/2024 [...] tablet; TAKE 1 TABLET BY MOUTH EVERY MORNING-slovenian, dose increased 08/30/24 Assessment & Plan (03/04/2025 [...] Description 05/11/2025 9:30 AM EDT Office Visit [facility] [address] [place] [address] Michelle Carcamo MD Primary hypertension (Primary Dx); Hypokalemia; Hypercholesterolemia 05/11/2025 Travel 05/10/2025 Telephone [facility] [address] [place], [place] [phone] Michelle Carcamo MD Chart prep from Last 3 Months Immunizations Immunization Administration [...] Description 08/29/2025 9:15 AM EST Office Visit [facility] [address] [place], [place] [phone] Michelle Carcamo MD [address] [place] [address] Health Maintenance Due Date Last Done Comments COVID-19 Vaccine ( season) 2025 12/05/2021, 12/14/2020, 11/16/2020 Alcohol/Substance Use Screening 05/11/2026 05/11/2025 Depression Screening 05/11/2026 05/11/2025, 05/11/20 SDOH Screening 05/11/2026 05/11/2025 Tobacco Screening 05/11/2026 [...] PANEL Routine 05/03/2025 11:57 AM EDT Hypokalemia LIPID PANEL, STANDARD Routine 01/03/2025 11:30 AM EDT Hypercholesterolemi a from Last 3 Months or Most Recently Relevant to Health Maintenance Results * (ABNORMAL) Basic Metabolic Panel (05/03/2025 11:57 AM EDT) Sodium 143 135 - 145 mmol/L [facility] Potassium 3.5 3.3 - 5.1 mmol/L [facility] Chloride 107 96 - 108 mmol/L [facility] Carbon Dioxide 29 22 - 29 mmol/L [facility] Anion Gap 11(L) 12 - 20 [facility] Urea Nitrogen (BUN) 12 9 - 16 mg/dL [facility] Creatinine, Serum 0.80 0.5 - 1.4 mg/dL [facility] Estimated Glomerular Filt Rate >60 [facility] Comment:Chronic Kidney Disea se: Estimated GFR < 60 mL/min/[id number] Kidney Disease: Estimated GFR < 15 mL/min/1.73m2 Glucose 101 60 - 115 mg/dL [facility] Calcium 9.2 8.4 - 10.2 mg/dL [facility] Blood Venous blood specimen / Unknown 05/03/2025 11:57 AM EDT 05/03/2025 1:01 PM EDT Michelle Carcamo MD LAB BLOOD ORDERABLES Final Result Performing Organization Address [facility]/ZIP Co de Phone Number [facility] [address] [place] [phone] [phone] * (ABNORMAL) Lipid Panel, Standard (01/03/2025 11:30 AM EDT) Triglycerides 136 <150 mg/dL [facility] Comment:Desirable Triglyceri de: less than 150 mg/dLBorderline High Triglyceride 150-199 mg/dLHigh Triglyceride: 200-499 mg/dLVery High Triglyceride: greater than or equal to 5OO mg/dL Cholesterol 185 <200 mg/dL [facility] Comment:Desirable Cholestero l: less than 200 mg/dLBorderline High Cholesterol: 200-239 mg/dLHigh Cholesterol: greater than 239 mg/dL LDL Cholesterol Calculated 115(H) <100 mg/dL [facility] Comment:Desirable LDL: less than 100 mg/dLNear Optimal/Above Optimal LDL: 110- 129 mg/dLBorderline High LDL: 130-159 mg/dLHigh LDL: 160-189 mg/dLVery High LDL: greater than or equal to 190 mg/dL HDL Cholesterol 43 >40 mg/dL [facility] Comment:Desirable HDL: great er than 40 mg/dL Note: This HDL assay may give artificially low results in patients with liver disease. Blood Venous blood specimen / Unknown 01/03/2025 11:30 AM EDT 01/03/2025 12:30 PM EDT Michelle Carcamo MD LAB BLOOD ORDERABLES Final Result Performing Organization Address City/[facility]/ZIP Co de Phone Number [facility] [address] [place] [address] [phone] from Last 3 Months or Most Recently Relevant to Health Maintenance Insurance MEDICARE [facility] Advance Directives Documents on File Type Date Recorded Patient Technician Inventory Specialist Expl anation Advance Directives and Living Will 07/29/2024 12:34 PM Health Care Proxy Advance Directives and Living Will 04/05/2024 Health Care Proxy 04/05/24 Care Teams Feed Miller Relationship Specialty Start Date End Date Geary, MD Michelle [address] [place] [phone] PCP - General Family Medicine 10/06/18
--- OUTSIDE RECORDS SUMMARY | 2025-07-08 19:41 | XMS_ITS | Encounter Summary ---
Author Organization [employer] Address [address] [facility] 7t [place] [address] Care Team Providers Care Recyclable Products Sorter Name Role Phone Michelle Carcamo MD Primary Care Provider +1- [phone] Reason for Visit * Reason Comments Med Change Request Encounter Details Date Type Department Care Team ([facility] st Contact Info) Description 08/19/2024 Refill [facility] [address] [place] [address] Michelle Carcamo MD [address] [place] [address] Hypokalemia Social History Tobacco Use Types Packs/Day [...] 9:15 AM EST Office Visit [facility] [address] [place] [phone] Michelle Carcamo MD [address] [place] [address] documented as of this encounter Visit Diagnoses Diagnosis Hypokalemia Hypopotassemia documented in this encounter Additional Health Concerns Assessment Noted Time PHQ-9 Depression Total Score: 0 07/28/20 24 10:17 AM EDT documented as of this encounter Care Teams Recyclable Products Sorter Relationship Specialty Start Date End Date Michelle Carcamo MD [address] [place] [address] PCP - General Family Medicine 10/06/18 documented as of this encounter
[2025-07-08 19:52] VITALS: BP 169/76; BP 173/78; PULSE 62; PULSE 65
[2025-07-08 19:53] VITALS: BP 169/76; PULSE 65
[2025-07-08 20:26] LABS: Appearance Urine Clear; Glucose Urine UA Negative (Negative); PH 7.0 (5.0-9.0); Specific Gravity - Urine 1.010 (1.005-1.025)
[2025-07-08 20:37] LABS: Troponin-I High Sensitivity 11.6 ng/L (<3.5-35.0)
[2025-07-08] MEDS: Diphth,Pertus(ACell),Tet Adult 0.5 ML SYRINGE IM (21:26)
[2025-07-08] MEDS: Lidocaine HCl 1 % MPF 5 ML VIAL INFILTRATI (21:32)
[2025-07-08 21:57] VITALS: BP 156/74; PULSE 58; RESP 16; TEMP 36.9; O2SAT 98
[2025-07-08 22:08] VITALS: BP 156/74; PULSE 58; RESP 16; TEMP 36.9; O2SAT 98
== END 2025-07-08 22:09 | disposition home or self-care (01) ==
PROVIDERS: Physician Assistant Medical; Registered Nurse Emergency; Emergency Provider Emergency Medicine
DX: S01.111A Laceration without foreign body of right eyelid and periocular area, initial encounter (principal); R42 Dizziness and giddiness; R00.1 Bradycardia, unspecified; X58.XXXA Exposure to other specified factors, initial encounter; Y93.9 Activity, unspecified; Y92.9 Unspecified place or not applicable; Y99.8 Other external cause status; Z23 Encounter for immunization; Z79.899 Other long term (current) drug therapy
CPT/HCPCS: 12011; 36415; 70450; 70486; 80053; 81001; 83735; 84484; 85025; 85610; 90471; 90715; 93005; 99284; 99285; J2003

== ENCOUNTER → 2025-07-08 15:31 | Outpatient (BNV) | payer MEDICARE, MEDICAID, SELFPAY | PROVIDERS: Visit Provider Radiology Diagnostic Radiology | DX: S01.111A Laceration without foreign body of right eyelid and periocular area, initial encounter (principal); S09.90XA Unspecified injury of head, initial encounter; W19.XXXA Unspecified fall, initial encounter | CPT/HCPCS: 70450; 70486 ==

== ENCOUNTER → 2025-07-08 18:20 | Outpatient (BNV) | payer MEDICARE, MEDICAID, SELFPAY | PROVIDERS: Emergency Provider Emergency Medicine; Visit Provider Internal Medicine | DX: R00.1 Bradycardia, unspecified (principal) | CPT/HCPCS: 93010 ==

== ENCOUNTER 2025-08-29 09:53 | Outpatient (REF) | payer MEDICARE, MEDICAID, SELFPAY ==
[2025-08-29 12:13] LABS: Microalbum/Creatinine Ratio Ur 85.7 ug/mg cr (<30)
[2025-08-29 15:24] LABS: Alanine Aminotransferase 26 U/L (0-40); Albumin Level 4.4 g/dL (3.5-5.0); Alkaline Phosphatase 92 U/L (39-117); Anion Gap 15 (12-20); Aspartate Amino Transferase 33 U/L (5-37); Blood Urea Nitrogen 13 mg/dL (9-16); Calcium 9.3 mg/dL (8.4-10.2); Carbon Dioxide 27 mmol/L (22-29); Chloride 105 mmol/L (96-108); Cholesterol 291 mg/dL (<200); Estimated Glomerular Filt Rate > 60; HDL Cholesterol 46 mg/dL (>40); Potassium 3.0 mmol/L (3.3-5.1); Sodium 144 mmol/L (135-145); Total Protein 7.1 g/dL (6.5-8.0); Triglycerides 216 mg/dL (<150)
== END 2025-08-29 09:54 | disposition home or self-care (01) ==
LOC: HO.HHCL 09:53
PROVIDERS: PCP Family Medicine; Visit Provider Family Medicine
DX: I10 Essential (primary) hypertension (principal); E78.00 Pure hypercholesterolemia, unspecified
CPT/HCPCS: 36415; 80048; 80061; 80076; 82043; 82570